=== PATIENT | female | born 1945 | race Caucasian/White ===

== ENCOUNTER 2017-10-19 07:45 | Day surgery (SDC) | payer OTHER ==
[2017-10-18 12:01] LABS: Absolute Lymphocytes (CBC) 2.6 K/uL (0.7-4.9); Absolute Monocytes 0.9 K/uL (0.1-1.3); Absolute Neutrophil 5.6 K/uL (1.8-8.0); Basophils % 0.4 % (0-1.3); Eosinophils % 3.9 % (0-4.4); Hematocrit 43.4 % (36.0-45.0); Lymphocytes % 27.1 % (15.3-44.8); MCH 30.7 pg (27.0-35.0); MCV 90.5 fL (80-100); Monocytes % 9.8 % (3.3-12.3); RBC Red Blood Cell Count 4.79 M/uL (3.86-4.86)
[2017-10-18 12:07] LABS: Protime INR 1.03
--- NOTE | 2017-10-18 12:17 | RAD REPORT ---
EXAM DESCRIPTION: RAD - Chest Pa And Lat (2 Views) - 10/18/2017 11:51 am CLINICAL HISTORY: Pre-procedure chest examination, kidney stone COMPARISON: July 2015 TECHNIQUE: PA and lateral views of the chest were obtained. FINDINGS: The lungs are fibrotic as a baseline. Interstitial pattern is similar to the comparison. T rachea is in mid line. Heart size is normal and central vasculature is within normal limits. No pl eural effusion or pneumothorax seen. No acute bony finding noted. No aortic abnormality. IMPRESSION: No acute cardiopulmonary process. Chronic interstitial pattern is present similar to July 2015.
[2017-10-18 12:22] LABS: Potassium 4.5 mEq/L (3.6-5.0)
[2017-10-18 12:23] LABS: Urine Appearance CLOUDY; Urine Bilirubin NEGATIVE (NEG); Urine Blood TRACE (NEG); Urine Color DK YELLOW; Urine Glucose NEGATIVE (NEG); Urine Protein TRACE (NEG); Urine Urobilinogen 0.2 mg/dL (0.2-1.0); Urine pH 5.5 (5.0-7.0)
[2017-10-18 12:25] LABS: Uric Acid 6.7 mg/dL (2.6-8.0)
[2017-10-18 12:31] LABS: Urine Microscopic Reflex ORDER UMIC
[2017-10-18 13:33] LABS: Urine Bacteria 20-50 /HPF (<20); Urine RBC <5 /HPF (NONE SEEN)
[2017-10-18 13:34] LABS: Urine Culture Reflex Order NOT NEEDED; Urine Mucus 1+ /HPF (NONE SEEN)
--- NOTE | 2017-10-18 13:53 | EKG ---
Test Date: 2017-10-18 Test Time: 11:34:42 Heading Matcher And Assembler: CASSI MEASUREMENT RESULTS: Intervals: Rate: 73 NV: 162 QRSD: 92 QT: 426 QTc: 469 [place]: P: 20 NV: 162 QRS: -13 T: 24 INTERPRETIVE STATEMENTS: Normal sinus rhythm Normal ECG No previous ECG available for comparison Electronically Signed On 10-18-17 13:52:16 CDT by Odell Hickman
[2017-10-18 13:58] LABS: Phosphorus 3.6 mg/dL (2.5-4.3)
[2017-10-19] MEDS ORDERED: Ringers Lactate 1,000 ML IV ONE (07:50)
[2017-10-19] MEDS ORDERED: LIDOCAINE 2% MPF 5 ML VIAL ONE (08:05)
[2017-10-19] MEDS ORDERED: MIDAZOLAM HCL 2 MG/2 ML INJ ONE (08:05)
[2017-10-19] MEDS ORDERED: FENTANYL CITR 100 MCG/2 ML ONE (08:05)
[2017-10-19] MEDS ORDERED: PROPOFOL 200 MG/20 ML VIAL IV ONE (08:05)
--- NOTE | 2017-10-19 08:22 | RAD REPORT ---
EXAM DESCRIPTION: RAD - Abdomen 1 View (KUB) - 10/19/2017 8:01 am CLINICAL HISTORY: Preop or pre-procedure examination COMPARISON: None. FINDINGS: Large dense stool volume in the colon obscures the right kidney and much of the left kidne y. Small left renal calculus overlying the hilum is suspected. Additional calculi could be present. T here are numerous phleboliths in the pelvis. Several are in a position that they may a represent dist al ureteral calculi. No obstruction, free air or pneumatosis. Bowel gas pattern is nonspecific other than large stool vol ume. Lower lumbar degenerative changes are present. No acute process suspected. IMPRESSION: Small renal calculus overlying the hilum. Overall renal calculi assessment is significan tly limited due to the amount of bowel content. Numerous phleboliths in the pelvis, 1 or more of which could be a ureteral calculus based on location .
[2017-10-19] MEDS: GENTAMICIN 80 MG/100 ML BAG 80 MG/100 ML BAG IV ONE ×2 (08:47→08:57)
[2017-10-19] MEDS ORDERED: EPHEDRINE SULF 50 MG/5 ML SYR ONE (09:08)
[2017-10-19] MEDS: MEPERIDINE HCL 25 MG/0.5 ML ONE ×2 (10:15→10:21)
[2017-10-19 11:08] VITALS: TEMP 97
[2017-10-19] MEDS ORDERED: HYDROCODONE/APAP 5/325 MG TAB ONE (11:35)
[2017-10-19 12:51] VITALS: BP 153/88; O2SAT 98
== END 2017-10-19 12:50 | disposition home or self-care (01) ==
LOC: OR 07:45
PROVIDERS: ATTEND Urology
PROC: 0TF3XZZ Fragmentation in Right Kidney Pelvis, External Approach (ICD-10-PCS; principal; 2017-10-19 09:00)
DX: N20.0 Calculus of kidney (principal); Q62.39 Other obstructive defects of renal pelvis and ureter; K21.9 Gastro-esophageal reflux disease without esophagitis; H40.9 Unspecified glaucoma; M06.9 Rheumatoid arthritis, unspecified; Z88.8 Allergy status to other drugs, medicaments and biological substances; Z90.49 Acquired absence of other specified parts of digestive tract
CPT/HCPCS: 36415; 50590; 71046; 74018; 80048; 81003; 81015; 84100; 84550; 85025; 85610; 85730; 87086; 87088; 93005; J1580; J2175; J2250; J3010

== ENCOUNTER 2017-10-19 21:24 | Inpatient (IN) | payer OTHER ==
[2017-10-19 22:28] LABS: Urine Blood 2+ (NEG); Urine Glucose NEGATIVE (NEG); Urine Protein 2+ (NEG)
[2017-10-19] MEDS ORDERED: NA CHLORIDE 0.9% 1,000 ML ONE (22:29)
[2017-10-19 22:54] LABS: Absolute Lymphocytes (CBC) 1.5 K/uL (0.7-4.9); Absolute Monocytes 1.2 K/uL (0.1-1.3); Absolute Neutrophil 10.5 K/uL (1.8-8.0); Basophils % 0.4 % (0-1.3); Eosinophils % 0.4 % (0-4.4); Hematocrit 39.2 % (36.0-45.0); Lymphocytes % 11.2 % (15.3-44.8); MCH 30.5 pg (27.0-35.0); MCV 89.4 fL (80-100); MPV 7.9 fL (7.6-11.3); Monocytes % 9.1 % (3.3-12.3); RBC Red Blood Cell Count 4.39 M/uL (3.86-4.86)
[2017-10-19 23:05] LABS: Urine Bacteria <20 /HPF (<20); Urine Culture Reflex Order NOT NEEDED; Urine RBC 20-50 /HPF (NONE SEEN)
[2017-10-19 23:13] LABS: Albumin 3.8 g/dL (3.2-5.5); Bilirubin Direct 0.1 mg/dL (0-0.2); Bilirubin Total 0.5 mg/dL (0.3-1.2); Potassium 3.7 mEq/L (3.6-5.0); Protein, Total 7.2 g/dL (6.0-8.3)
[2017-10-20] MEDS ORDERED: MORPHINE 2 MG/ML SYR IV PRN (00:35)
[2017-10-20] MEDS: NA CHLORIDE 0.9% 1,000 ML IV SCH ×3 (01:00→17:00)
--- NOTE | 2017-10-20 01:01 | ER ---
Nurse's Notes [facility] Name: Krupa Massey Age: 72 yrs Sex: Female : 1945 Arrival Date: 10/19/2017 Time: 21:27 Bed 7 Private MD: Diagnosis: Obstructive right uropathy. S/P Lithotripsy. UTI. Fever Presentation: 10/19 21:44 Presenting complaint: Patient states: Headache, fever, right lower back pain since this aj AM after lithotripsy. Transition of care: patient was not received from another setting of care. Onset of symptoms was October 19, 2017. Initial Sepsis Screen: Does the patient meet any 2 criteria? No. Patient's initial sepsis screen is negative. Does the patient have a suspected source of infection? No. Patient's initial sepsis screen is negative. Care prior to arrival: None. 21:44 Method Of Arrival: Ambulatory aj 21:44 Acuity: JOSUE 3 aj Triage Assessment: 21:47 General: Appears in no apparent distress. uncomfortable, Behavior is calm, cooperative, aj appropriate for age. Pain: Complains of pain in face and right low back Pain currently is 5 out of 10 on a pain scale. Neuro: Level of Consciousness is awake, alert, obeys commands, Oriented to person, place, time, situation, Appropriate for age Reports headache. Respiratory: Airway is patent Respiratory effort is even, unlabored, Respiratory pattern is regular, symmetrical. : Reports pain in right in lower back. Derm: Skin is intact, is healthy with good turgor, Skin is dry, Skin is normal, Skin temperature is hot. Historical: - Allergies: 21:47 temalol; aj 21:47 alfagan; aj - Home Meds: 21:47 Nexium Oral [Active]; meloxicam oral oral [Active]; aj - PMHx: 21:47 None; aj - PSHx: 21:47 Lithotripsy; Knee surgery; foot; Cholecystectomy; aj - Immunization history:: Adult Immunizations up to date. - Social history:: Smoking status: Patient/guardian denies using tobacco. Screenin:01 Abuse screen: Denies threats or abuse. Nutritional screening: No deficits noted. ea Tuberculosis screening: No symptoms or risk factors identified. Fall Risk None identified. Assessment: 21:56 General: Appears uncomfortable, Behavior is calm, cooperative, appropriate for age. ea Pain: Complains of pain in headache, right lower back and right lower quadrant Pain currently is 8 out of 10 on a pain scale. Quality of pain is described as aching, Pain began suddenly. Neuro: Level of Consciousness is awake, alert, obeys commands, Oriented to person, place, time, situation. Cardiovascular: Heart tones S1 S2 present Patient's skin is warm and dry. Respiratory: Airway is patent Respiratory effort is even, unlabored, Respiratory pattern is regular, symmetrical, Breath sounds are clear bilaterally. GI: Abdomen is non-distended, Bowel sounds present X 4 quads. Abd is soft X 4 quads Abdomen is tender to palpation in right lower quadrant. : Parent/caregiver report the patient having recent lithotripsy. EENT: No signs and/or symptoms were reported regarding the EENT system. Derm: Skin is pink, warm \T\ dry. 22:58 Reassessment: Patient and/or family updated on plan of care and expected duration. Pain ea level reassessed. Patient is alert, oriented x 3, equal unlabored respirations, skin warm/dry/pink. 23:50 Reassessment: Patient and/or family updated on plan of care and expected duration. Pain ea level reassessed. Patient is alert, oriented x 3, equal unlabored respirations, skin warm/dry/pink. 10/20 00:33 Reassessment: Patient and/or family updated on plan of care and expected duration. Pain ea level reassessed. Patient is alert, oriented x 3, equal unlabored respirations, skin warm/dry/pink. 01:42 Reassessment: Patient and/or family updated on plan of care and expected duration. Pain ea level reassessed. Patient is alert, oriented x 3, equal unlabored respirations, skin warm/dry/pink. 01:49 Reassessment: Report given to George CANTU on fourth floor. ea Vital Signs: 10/19 21:47 BP 169 / 84; Pulse 109; Resp 20; Temp 99.9; Pulse Ox 93% on R/A; Weight 88.45 kg; aj Height 5 ft. 6 in. (167.64 cm); Pain 5/10; 21:59 BP 140 / 80; Pulse 103; Resp 18; Pulse Ox 95% on R/A; ea 22:45 BP 135 / 75; Pulse 90; Resp 18; Pulse Ox 94% on R/A; aa1 10/20 00:33 BP 129 / 56; Pulse 90; Resp 18; Pulse Ox 99% on R/A; ea 01:39 BP 130 / 78; Pulse 89; Resp 18; Temp 98.7; Pulse Ox 96% on R/A; Pain 0/10; ea 10/19 21:47 Body Mass Index 31.47 (88.45 kg, 167.64 cm) ED Course: 10/19 21:27 Patient arrived in ED. am2 21:45 Triage completed. aj 21:47 Arm band placed on left wrist. Patient placed in an exam room, on a stretcher. aj 21:53 Prasanth Ibrahim MD is Attending Physician. pkl 21:56 Nadine Mercer, PEPE is Primary Nurse. ea 22:01 Patient has correct armband on for positive identification. Bed in low position. Call ea light in reach. Side rails up X2. 22:20 X-ray completed. Portable x-ray completed in exam room. Patient tolerated procedure kc2 well. 22:20 XRAY CXR (1 view) In Process Unspecified. EDMS 23:[address] via wheelchair. cw1 23:39 CT completed. Patient moved back from CT. cw1 23:45 CT Abd/Pelvis - W/Contrast In Process Unspecified. EDWV 10/20 00:59 Susan De Luna MD is Hospitalizing Provider. pkl 01:42 No provider procedures requiring assistance completed. Patient admitted, IV remains in ea place. Administered Medications: 10/19 22:41 Drug: NS 0.9% 1000 ml Route: IV; Rate: 125 ml/hr; Site: left antecubital; ea 10/20 02:04 Follow up: Response: No adverse reaction; IV Status: Completed infusion; IV Intake: ea 350ml Intake: 02:04 IV: 350ml; Total: 350ml. ea Outcome: 01:00 Decision to Hospitalize by Provider. pkl 01:41 Instructed on the need for admit. ea 02:02 Admitted to Med/surg accompanied by tech, room 407, with chart, Report called to George carranza RN 02:02 Condition: stable 02:03 Patient left the ED. ea Signatures: Dispatcher [employer] EDAdriane Batxer, RN RN aa1 Dana Fletcher RN RN aj Lam, Pin, MD MD pkl Woodley, Maria Elena cw1 Marcelina Rizvi2 Dana Alexis Elena, RN RN ea
--- NOTE | 2017-10-20 01:01 | EDPHYS ---
Physician Documentation [facility] Name: Krupa Massey Age: 72 yrs Sex: Female : 1945 Arrival Date: 10/19/2017 Time: 21:27 Bed 7 Private MD: ED Physician Prasanth Ibrahim HPI: 10/19 23:01 This 72 yrs old Female presents to ER via Ambulatory with complaints of pkl Fever/headache/back pain. 23:01 The patient reports fever, that was measured at 101.6 degrees Fahrenheit, with an pkl emergency department temperature of 99.9 degrees Fahrenheit. Onset: The symptoms/episode began/occurred today. Associated signs and symptoms: Pertinent positives: headache, nausea, Right flank and abdominal pain. Patient had lithotripsy earlier this morning for her right ureteral stone by Dr. Fox. Historical: - Allergies: 21:47 temalol; aj 21:47 alfagan; aj - Home Meds: 21:47 Nexium Oral [Active]; meloxicam oral oral [Active]; aj - PMHx: 21:47 None; aj - PSHx: 21:47 Lithotripsy; Knee surgery; foot; Cholecystectomy; aj - Immunization history:: Adult Immunizations up to date. - Social history:: Smoking status: Patient/guardian denies using tobacco. ROS: 23:01 Eyes: Negative for injury, pain, redness, and discharge, ENT: Negative for injury, pkl pain, and discharge, Neck: Negative for injury, pain, and swelling, Cardiovascular: Negative for chest pain, palpitations, and edema, Respiratory: Negative for shortness of breath, cough, wheezing, and pleuritic chest pain. 23:01 Abdomen/GI: Positive for abdominal pain, nausea, of the right upper quadrant and right lower quadrant. 23:01 Back: Positive for pain at rest. 23:01 : Negative for urinary symptoms. 23:01 MS/extremity: Negative for acute changes. 23:01 Skin: Negative for rash. 23:01 Neuro: Positive for headache. Exam: 23:01 Head/Face: Normocephalic, atraumatic. Eyes: Pupils equal round and reactive to light, pkl extra-ocular motions intact. Lids and lashes normal. Conjunctiva and sclera are non-icteric and not injected. Cornea within normal limits. Periorbital areas with no swelling, redness, or edema. ENT: Nares patent. No nasal discharge, no septal abnormalities noted. Tympanic membranes are normal and external auditory canals are clear. Oropharynx with no redness, swelling, or masses, exudates, or evidence of obstruction, uvula midline. Mucous membranes moist. Neck: Trachea midline, no thyromegaly or masses palpated, and no cervical lymphadenopathy. Supple, full range of motion without nuchal rigidity, or vertebral point tenderness. No Meningismus. Chest/axilla: Normal chest wall appearance and motion. Nontender with no deformity. No lesions are appreciated. Cardiovascular: Regular rate and rhythm with a normal S1 and S2. No gallops, murmurs, or rubs. Normal PMI, no JVD. No pulse deficits. Respiratory: Lungs have equal breath sounds bilaterally, clear to auscultation and percussion. No rales, rhonchi or wheezes noted. No increased work of breathing, no retractions or nasal flaring. 23:01 Abdomen/GI: Bowel sounds: normal, Palpation: soft, mild abdominal tenderness, in the right upper quadrant and right lower quadrant. 23:01 Back: pain, that is moderate, of the right flank. 23:01 : Exam negative for acute changes. 23:01 Musculoskeletal/extremity: Exam is negative for acute changes. 23:01 Skin: Exam negative for rash. 23:01 Neuro: Orientation: is normal, Mentation: is normal, Cranial nerves: grossly normal, Motor: is normal. Vital Signs: 21:47 BP 169 / 84; Pulse 109; Resp 20; Temp 99.9; Pulse Ox 93% on R/A; Weight 88.45 kg; aj Height 5 ft. 6 in. (167.64 cm); Pain 5/10; 21:59 BP 140 / 80; Pulse 103; Resp 18; Pulse Ox 95% on R/A; ea 22:45 BP 135 / 75; Pulse 90; Resp 18; Pulse Ox 94% on R/A; aa1 10/20 00:33 BP 129 / 56; Pulse 90; Resp 18; Pulse Ox 99% on R/A; ea 01:39 BP 130 / 78; Pulse 89; Resp 18; Temp 98.7; Pulse Ox 96% on R/A; Pain 0/10; ea 10/19 21:47 Body Mass Index 31.47 (88.45 kg, 167.64 cm) aj MDM: 10/19 21:53 Patient medically screened. pkl 10/20 00:58 Data reviewed: vital signs, nurses notes, lab test result(s), radiologic studies, CT pkl scan. 10/19 22:06 Order name: CBC with Diff; Complete Time: 23:09 pkl 10/19 22:06 Order name: Chem 7; Complete Time: 23:20 pkl 10/19 22:06 Order name: Strep; Complete Time: 23:09 pkl 10/19 22:06 Order name: LFT's; Complete Time: 23:20 pkl 10/19 22:06 Order name: Amylase, Serum; Complete Time: 23:20 pkl 10/19 22:06 Order name: Lipase; Complete Time: 23:20 pkl 10/19 22:06 Order name: Blood Culture Adult (2) pk 10/19 22:21 Order name: Urine Dipstick--Ancillary (enter results); Complete Time: 22:41 [facility] 10/19 22:21 Order name: Urine Culture [facility] 10/19 22:21 Order name: Urine Microscopic Only; Complete Time: 23:09 cb2 10/19 23:07 Order name: Throat Culture EDMO 10/20 00:42 Order name: Comprehensive Metabolic Panel EDMO 10/20 00:42 Order name: CBC with Automated Diff EDMO 10/20 00:42 Order name: CBC with Automated Diff EDMO 10/19 22:06 Order name: XRAY CXR (1 view) pk 10/19 22:21 Order name: Urine Dipstick-Ancillary (obtain specimen); Complete Time: 23:12 cb2 10/19 23:21 Order name: CT Abd/Pelvis - W/Contrast pk 10/20 00:42 Order name: CONS Pharmacy Consult EDMO 10/20 00:42 Order name: CONS Physician Consult EDMO 10/20 00:42 Order name: NPO EDMO Administered Medications: 10/19 22:41 Drug: NS 0.9% 1000 ml Route: IV; Rate: 125 ml/hr; Site: left antecubital; ea 10/20 02:04 Follow up: Response: No adverse reaction; IV Status: Completed infusion; IV Intake: ea 350ml Disposition: 10/20/17 01:00 Hospitalization ordered by Susan De Luna for Inpatient Admission. Preliminary diagnosis is Obstructive right uropathy. S/P Lithotripsy. UTI. Fever. - Bed requested for Telemetry/MedSurg (Inpatient). - Status is Inpatient Admission. ea - Condition is Stable. - Problem is new. - Symptoms are unchanged. UTI on Admission? Yes Signatures: Dispatcher [employer] Dana Lacey, Prasanth Bowman RN, MD MD pkl Garcia, Cindy, RN RN cg Bulan, Christian cb2 Antunez, Elena, RN RN ea
[2017-10-20 02:39] VITALS: BMI 30.4
[2017-10-20 04:18] LABS: Absolute Lymphocytes (CBC) 2.8 K/uL (0.7-4.9); Absolute Monocytes 1.5 K/uL (0.1-1.3); Absolute Neutrophil 7.4 K/uL (1.8-8.0); Basophils % 0.6 % (0-1.3); Eosinophils % 1.1 % (0-4.4); Hematocrit 37.3 % (36.0-45.0); Lymphocytes % 23.4 % (15.3-44.8); MCH 30.1 pg (27.0-35.0); MCV 90.1 fL (80-100); Monocytes % 12.3 % (3.3-12.3); RBC Red Blood Cell Count 4.14 M/uL (3.86-4.86)
[2017-10-20 04:29] LABS: Albumin 3.4 g/dL (3.2-5.5); Bilirubin Total 0.5 mg/dL (0.3-1.2); Potassium 3.5 mEq/L (3.6-5.0); Protein, Total 6.4 g/dL (6.0-8.3)
[2017-10-20] MEDS: Morphine 2 MG/2 ML SYR IV PRN ×3 (05:46→13:13)
--- NOTE | 2017-10-20 06:12 | RAD REPORT ---
EXAM DESCRIPTION: RAD - Chest Single View - 10/19/2017 10:20 pm CLINICAL HISTORY: Fever COMPARISON: October 18 TECHNIQUE: AP portable chest image was obtained 2210 hours . FINDINGS: Chronic interstitial lung disease is evident. No new consolidation or mass. No new failure or volume overload findings seen. Trachea remains midline. Heart and vasculature are normal. No anitha urable pleural effusion and no pneumothorax. No gross bony abnormality seen. No acute aortic findings suspected. IMPRESSION: No new or progressive cardiopulmonary finding. Chronic interstitial lung disease is noted similar to the prior day study.
--- NOTE | 2017-10-20 06:49 | RAD REPORT ---
EXAM DESCRIPTION: CT - Abdomen Pelvis W Contrast - 10/20/2017 6:08 am CLINICAL HISTORY: Fever, right lower quadrant abdominal pain, lithotripsy performed earlier in the d ay A preliminary written report was provided at the time of the study, and the report was reviewed prio r to final dictation. COMPARISON: CT chest September 2015 TECHNIQUE: Biphasic, helical CT imaging of the abdomen and pelvis was performed following 100 ml non -ionic IV contrast. No oral contrast administered. All CT scans are performed using dose optimization technique as appropriate and may include automated exposure control or mA/KV adjustment according to patient size. FINDINGS: Extensive but chronic interstitial lung disease is present at each base. No focal consolid ation, mass, pneumothorax or pleural effusion. No pericardial effusion. The liver, spleen, and pancreas show no suspicious findings. Cholecystectomy clips are present. No bi liary tree dilatation. Left renal function is normal. posterosuperior 3.9 centimeter cyst is present. A 9.5 cm cyst is prese nt anteriorly. Right kidney shows moderate hydronephrosis of the pelvis, calices and proximal ureter secondary to a 7 mm calculus. From a KUB projection the stone is at the level of the L3-4 disc. More distally the ureter is decompressed. There may be a very faint or small stone fragment in the ureter at the pelvic inlet. There is some stranding along the course of the ureter between the pelvic inlet in the proximal obstructing stone. No pyelonephritis suspected in the right renal parenchyma. Numerou s phleboliths are seen. A 1- 2 millimeter bladder calculus is evident. Lobulated uterus with a 3 centimeter fibroid along the left lateral margin. No ovarian process identi fied. No dilated bowel loops or bowel wall thickening. No appendicitis findings. No free air, free fluid, p neumatosis or other site of inflammatory stranding. No hernia, mass or bulky lymphadenopathy. No adr enal abnormality. No suspicious bony findings. IMPRESSION: Moderate right-sided hydronephrosis secondary to a 7 mm calculus in the proximal right u reter. On a KUB projection the stone is at the level of the L3-4 disc. Suspected punctate stone fragment in the right ureter at the pelvic inlet level with 1-2 millimeter s tone fragment in the bladder. No pyelonephritis or acute renal parenchymal process. Right renal function is delayed. Additional nonacute findings detailed in the body of the report.
--- NOTE | 2017-10-20 06:55 | P.HP ---
Certification for Inpatient Patient admitted to: Observation With expected LOS: <2 Midnights Patient will require the following post-hospital care: None Practitioner: I am a practitioner with admitting privileges, knowledge of patient current condition, hospital course, and medical plan of care. Services: Services provided to patient in accordance with Admission requirements found in Title 42 Section 412.3 of the Code of Federal Regulations Patient History Date of Service: 10/20/17 Reason for admission: Nephrolithiasis History of Present Illness: Patient 72-year-old female came into the hospital with flank pain. Patient had a lithotripsy performed earlier today. However patient's pain continued after the procedure. She came into the emergency room and CT scan revealed that her stone was still there. Emergency room spoke with Dr. Fox who wanted to admit the patient for further treatment. Patient will be admitted to the hospital with IV hydration and IV antibiotics. NPO after midnight for possible intervention. Allergies brimonidine [From Alphagan P] Allergy (Verified 10/20/17 02:28) Itching timolol Allergy (Verified 10/20/17 02:28) Rash Home Medications: Esomeprazole Mag Trihydrate [Nexium] 40 mg PO DAILY 10/18/17 Latanoprost Ophth [Xalatan 0.005%*] 1 drop EACH EYE BEDTIME 10/18/17 Meloxicam 15 mg PO DAILY 10/18/17 Hydrocodone 10/APAP 325 [[place] 10/325] 1 tab PO Q8H PRN 10/20/17 Tamsulosin HCl [Tamsulosin HCl] 1 tab PO DAILY 10/20/17 - Past Medical/Surgical History Has patient received pneumonia vaccine in the past: No Diabetic: No -: glaucoma -: knee surgery -: lithotripsy -: cholecystectomy - Family History Father Family History: Reviewed- Non-Contributory - Social History Smoking Status: Never smoker Alcohol use: No CD- Drugs: Yes Caffeine use: Yes Place of Residence: Home Review of Systems 10-point ROS is otherwise unremarkable Physical Examination - Vital Signs Temperature: 97.8 F Blood Pressure: 138/64 Pulse: 82 Respirations: 18 Pulse Ox (%): 97 - Physical Exam General: Alert, In no apparent distress, Oriented x3 HEENT: Atraumatic, PERRLA, Mucous membr. moist/pink, EOMI, Sclerae nonicteric Neck: Supple, 2+ carotid pulse no bruit, No LAD, Without JVD or thyroid abnormality Respiratory: Clear to auscultation bilaterally, Normal air movement Cardiovascular: Regular rate/rhythm, Normal S1 S2, No murmurs Gastrointestinal: Normal bowel sounds, Soft and benign, Non-distended, Tenderness (Flank) Musculoskeletal: No clubbing, No swelling, No tenderness Integumentary: No rashes Neurological: Normal gait, Normal speech, Normal strength at 5/5 x4 extr, Normal tone, Sensation intact, Cranial nerves 3-12 intact, Normal affect Lymphatics: No axilla or inguinal lymphadenopathy - Studies Laboratory Data (last 24 hrs) 10/19/17 22:25: Sodium 134 L, Potassium 3.7, BUN 17, Creatinine 1.03 H, Glucose 182 H, Total Bilirubin 0.5, AST 30, ALT 21, Alkaline Phosphatase 78, Amylase 43 , Lipase 23 10/19/17 22:25: WBC 13.3 H D, Hgb 13.4, Hct 39.2, Plt Count 230 Microbiology Data (last 24 hrs): 10/19/17 22:29 Throat Group A Streptococcus Rapid Screen - Final Assessment & Plan - Problems (Diagnosis) (1) Obstructive uropathy Current Visit: Yes Status: Acute - Plan Plan: 1. Continue with IV hydration 2. Continue with IV antibiotics 3. Continue with pain control 4. NPO 5. Urology consultation; 6. GI and DVT prophylaxis - Advance Directives Does patient have a Living Will: Yes Does patient have a Durable POA for Healthcare: Yes - Code Status/Comfort Care Code Status Assessed: Yes Code Status: Full Code Critical Care: No Time Spent Managing PTS Care (In Minutes): 50
[2017-10-20] MEDS ORDERED: PNEUMOCOCCAL VACCINE 0.5 ML IMVAC ONE (08:00)
[2017-10-20] MEDS ORDERED: HYDROCODONE/APAP 10/325 TAB PO PRN (08:48)
[2017-10-20] MEDS: TAMSULOSIN 0.4 MG SR CAP PO SCH (08:56)
[2017-10-20] MEDS ORDERED: HOME MED 1 EA UNK (Esomeprazole Mag Trihydrate [Nexium] 40 MG) PO SCH (09:00)
[2017-10-20] MEDS: ONDANSETRON 4 MG/2 ML VIAL IV PRN (09:09)
[2017-10-20] MEDS ORDERED: CEFTRIAXONE/SWI 1gm 1 GM/10 ML SYR IV SCH (11:00)
--- NOTE | 2017-10-20 13:11 | CON ---
History Of Present Illness: A 72-year-old female had her right ESWL done yesterday, went home, devel oped severe pain and temperature 101.5. She was brought to the emergency room for re-scan, IV hydrat ion, IV antibiotics on admission. She is n.p.o. for possible cysto, right stent placement today. CT scan showed a 7 mm stone at the level of L3 and L4. She will require pain medication overnight arou nd the clock. Allergies: BRIMONIDINE CAUSED ITCHING, TIMOLOL CAUSED RASH. Home Medications: Omeprazole, Xalatan, meloxicam, hydrocodone, tamsulosin. Past Medical History And Surgical History: Glaucoma, knee surgery, lithotripsy, cholecystectomy. Family History: Reviewed, noncontributory. Social History: No smoking. No alcohol. History of drug use, caffeine use. Resides at home. Review of Systems: A 10-point review of systems was unremarkable. Physical Examination: Vital Signs: She was afebrile and stable. General: Alert, oriented. HEENT: Atraumatic, normocephalic. Neck: Supple. Respiratory: Clear to auscultation. Cardiac: S1, S2. Abdomen: Soft, nontender. Has some right flank tenderness. Laboratory Data: Sodium 134, potassium 3.7, creatinine 1.0, glucose 182. White count was slightly e levated to 13,000, H and H 13 and 39, platelet count 230. Assessment: Right ureteral stone, renal colic, status post ESWL. There is some small chip seen in t he bladder and distal ureter from the ESWL, but the stone is pretty much together intact, 7 mm to the right of L3-L4. Plan is for cystoscopy and stent placement that will improve her pain and get her h ome. PB/MODL Voice ID: [id number] Report ID: [id number]
[2017-10-20] MEDS ORDERED: MIDAZOLAM HCL 2 MG/2 ML INJ ONE (13:42)
[2017-10-20] MEDS ORDERED: PROPOFOL 200 MG/20 ML VIAL IV ONE (13:42)
[2017-10-20] MEDS ORDERED: FENTANYL CITR 100 MCG/2 ML ONE (13:43)
[2017-10-20] MEDS ORDERED: LIDOCAINE 2% MPF 5 ML VIAL ONE (13:43)
[2017-10-20] MEDS ORDERED: GENTAMICIN 80 MG/100 ML BAG 80 MG/100 ML BAG IV ONE (14:09)
[2017-10-20] MEDS ORDERED: NA CHLORIDE 0.9% 1,000 ML ONE (14:23)
[2017-10-20] MEDS ORDERED: KETOROLAC 30 MG/ML INJ ONE (14:37)
--- NOTE | 2017-10-20 15:33 | RAD REPORT ---
EXAM DESCRIPTION: RAD - Urethrocystogrphy Retrograde - 10/20/2017 2:48 pm CLINICAL HISTORY: Abdominal pain. FINDINGS: Two fluoroscopic spot images are submitted for retrograde pyelogram. The examination was p erformed by Dr. Fox. The most recent film demonstrates cannulation of right ureter with the adminis tration of contrast. A filling defect is suspected within the proximal right ureter probably represen ting a calculus Please refer to Dr. Fox's report for additional findings.
[2017-10-20 15:34] LABS: Urine Bacteria <20 /HPF (<20); Urine Culture Reflex Order NOT NEEDED; Urine Mucus NS /HPF (NONE SEEN); Urine RBC >50 /HPF (NONE SEEN)
[2017-10-20] MEDS: ACETAMINOPHEN 500 MG TAB PO PRN ×2 (18:19→21:41)
[2017-10-20 22:08] LABS: Absolute Lymphocytes (CBC) 0.6 K/uL (0.7-4.9); Absolute Monocytes 1.1 K/uL (0.1-1.3); Basophils % 0.1 % (0-1.3); Eosinophils % 0.1 % (0-4.4); Hematocrit 37.2 % (36.0-45.0); Lymphocytes % 3.1 % (15.3-44.8); MCH 30.1 pg (27.0-35.0); MCV 89.3 fL (80-100); MPV 7.9 fL (7.6-11.3); Monocytes % 5.7 % (3.3-12.3); RBC Red Blood Cell Count 4.17 M/uL (3.86-4.86)
--- NOTE | 2017-10-20 22:20 | RAD REPORT ---
EXAM DESCRIPTION: RAD - Chest Single View - 10/20/2017 10:15 pm CLINICAL HISTORY: Shortness of breath, tachycardia COMPARISON: 10/19/2017, 10/18/2017 FINDINGS: Portable technique limits examination quality. Mild bilateral pulmonary opacities are noted likely representing pneumonia or pulmonary edema. Findin gs appear mildly progressive since the most recent comparative study. The heart is mildly to moderate ly enlarged. No displaced fractures.
[2017-10-20 23:18] LABS: Blood Morphology Comment NOT SEEN (NOT SEEN); Platelet Estimate ADEQ
[2017-10-21] MEDS: Levofloxacin500mg IV 500 MG/100 ML BAG IV SCH (00:34)
[2017-10-21] MEDS: NA CHLORIDE 0.9% 1,000 ML IV SCH ×4 (00:35→22:00)
[2017-10-21 04:14] LABS: Absolute Lymphocytes (CBC) 1.6 K/uL (0.7-4.9); Absolute Monocytes 1.5 K/uL (0.1-1.3); Absolute Neutrophil 18.1 K/uL (1.8-8.0); Basophils % 0.3 % (0-1.3); Eosinophils % 0.1 % (0-4.4); Hematocrit 35.8 % (36.0-45.0); Lymphocytes % 7.3 % (15.3-44.8); MCH 29.9 pg (27.0-35.0); MCV 91.7 fL (80-100); MPV 8.2 fL (7.6-11.3); Monocytes % 7.2 % (3.3-12.3); RBC Red Blood Cell Count 3.91 M/uL (3.86-4.86)
[2017-10-21 04:28] LABS: Protime INR 1.17
[2017-10-21 04:33] LABS: Bilirubin Total 0.6 mg/dL (0.3-1.2); Magnesium 1.8 mg/dL (1.8-2.5); Phosphorus 3.4 mg/dL (2.5-4.3); Potassium 4.1 mEq/L (3.6-5.0); Protein, Total 6.4 g/dL (6.0-8.3)
[2017-10-21 05:01] LABS: Blood Morphology Comment NOT SEEN (NOT SEEN); Platelet Estimate ADEQ
[2017-10-21] MEDS: CEFTRIAXONE/SWI 1gm 1 GM/10 ML SYR IV SCH ×2 (06:12→10:19)
[2017-10-21] MEDS: PANTOPRAZOLE 40MG TABLET PO SCH (06:12)
[2017-10-21] MEDS: ONDANSETRON 4 MG/2 ML VIAL IV PRN (09:46)
[2017-10-21] MEDS: TAMSULOSIN 0.4 MG SR CAP PO SCH (10:18)
--- NOTE | 2017-10-21 10:26 | RAD REPORT ---
EXAM DESCRIPTION: CT - Stone Protocol - 10/21/2017 10:05 am CLINICAL HISTORY: Abdominal pain. Placement of a right ureteral stent. COMPARISON: October 19, 2017 TECHNIQUE: Computed axial tomography of the abdomen pelvis was obtained without oral or IV contrast. Lack of IV and oral contrast limits evaluation of solid organs, bowel, and vessels. Coronal reformat edi images were obtained and reviewed. All CT scans are performed using dose optimization technique as appropriate and may include automated exposure control or mA/KV adjustment according to patient size. FINDINGS: A right ureteral calculus has been placed since the prior examination good position. The h ydronephrosis has resolved. A couple of small right renal calculi are noted. The proximal right urete ral calculus migrated into a right renal calyx. Left renal cysts are unchanged. The liver, spleen, pancreas and adrenals appear grossly normal There is no evidence of diverticulitis. The appendix appears normal A 34 millimeter mass abuts the left aspect of the uterus. It contains calcification. A small umbilical hernia contains fat. Spondylosis involves lumbar spine resulting in spinal stenosis Alveolar opacities have developed within the right lower lobe. A small hiatal hernia is present IMPRESSION: Placement of a right ureteral stent with resolution of the hydronephrosis 34 millimeter mass abutting the left aspect of the uterus most likely represents a subserosal fibroid . An ovarian mass is considered less likely. A follow-up ultrasound in 3 months is recommended to ass ess stability. Alveolar opacities within the right lower lobe likely represent pneumonia
--- NOTE | 2017-10-21 13:00 | P.PN ---
Subjective Date of Service: 10/21/17 Chief Complaint: Nephrolithiasis Subjective: No new changes, Tolerating diet (Still complains of having some nausea), Improving Review of Systems General: As per HPI Physical Examination - Vital Signs Temperature: 98.6 F Blood Pressure: 138/88 Pulse: 72 Respirations: 18 Pulse Ox (%): 95 - Physical Exam General: Alert, In no apparent distress, Oriented x3 HEENT: Atraumatic, PERRLA, EOMI Neck: Supple, JVD not distended Respiratory: Clear to auscultation bilaterally, Normal air movement Cardiovascular: Regular rate/rhythm, Normal S1 S2 Gastrointestinal: Normal bowel sounds, No tenderness Musculoskeletal: No tenderness Integumentary: No rashes Neurological: Normal speech, Normal tone, Normal affect Lymphatics: No axilla or inguinal lymphadenopathy - Studies Medications List Reviewed: Yes Assessment & Plan - Problems (Diagnosis) (1) SVT (supraventricular tachycardia) Current Visit: Yes Status: Acute Plan: 6 sec of SVT overnight. Resolved now -ECHO Pending. (2) Obstructive uropathy Onset Date: 10/20/17 Current Visit: Yes Status: Acute Plan: S/p Cystocopy with stent placement on the right side -Increased Nausea. -Repeat CT stone protocol negative for acute abnormality -IV fluids and IV abx. -Repeat Lab work in AM Discharge Plan: Home Plan to discharge in: 24 Hours - Code Status/Comfort Care Code Status Assessed: Yes Critical Care: No
[2017-10-21] MEDS: DOCUSATE NA 100 MG CAP PO SCH ×2 (13:58→22:26)
--- NOTE | 2017-10-21 16:48 | ECHO ---
HEIGHT: 5 ft 6 in WEIGHT: 188 lb 9.6 oz DATE OF STUDY: 10/21/[address]: Susan De Luna MD 2-DIMENSIONAL: YES M.MODE: YES DOPPLER: YES COLOR FLOW: YES TDS: PORTABLE: DEFINITY: BUBBLE STUDY: DIAGNOSIS: RUN OF SUPRAVENTRICULAR TACHYCARDIA - HEART RATE 180 CARDIAC HISTORY: CATHERIZATION: NO SURGERY: NO PROSTHETIC VALVE: NO PACEMAKER: NO MEASUREMENTS (cm) DIASTOLIC (NORMALS) SYSTOLIC (NORMALS) IVSd 0.9 (0.6-1.2) LA Diam 3.5 (1.9-4.0) LVEF 53% LVIDd 5.0 (3.5-5.7) LVIDs 3.6 (2.0-3.5) %FS 27% LVPWd 0.9 (0.6-1.2) Ao Diam 2.8 (2.0-3.7) 2 DIMENSIONAL ASSESSMENT: RIGHT ATRIUM: NORMAL LEFT ATRIUM: NORMAL RIGHT VENTRICLE: NORMAL LEFT VENTRICLE: NORMAL TRICUSPID VALVE: NORMAL MITRAL VALVE: NORMAL PULMONIC VALVE: NORMAL AORTIC VALVE: NORMAL PERICARDIAL EFFUSION: NONE AORTIC ROOT: NORMAL LEFT VENTRICULAR WALL MOTION: DOPPLER/COLOR FLOW: NORMAL COMMENTS: NORMAL 2-DIMENSIONAL ECHOCARDIOGRAM WITH DOPPLER. NO WALL MOTION ABNORMALITY. NO EFFUSION. TECHNOLOGIST: JACQUES MENDES
--- NOTE | 2017-10-21 18:03 | PN ---
Subjective: The patient had a white count this morning of 21.3 from 18.8. She had a recent cystosco py and stent placement yesterday. CT scan today revealed stone has been pushed back into the right l ower pole of the kidney, but chest x-ray does show signs of possible bilateral pneumonia. This may e xplain elevated white count. Her urine cultures have grown nothing significant so far. The plan vandana l be to try to obtain the cultures that could be helpful and continue her on antibiotic. She is now on Levaquin. Most likely, she is going to go home on that medication and we will do a KUB in a week or 2 to verify where the stone is and then hopefully remove the stent in this office, we shall have enrique roe attached distally. PAMELA/SYLVIA Voice ID: [id number] Report ID: [id number]
[2017-10-21] MEDS: ACETAMINOPHEN 500 MG TAB PO PRN (18:19)
[2017-10-22] MEDS: Levofloxacin500mg IV 500 MG/100 ML BAG IV SCH (01:57)
[2017-10-22] MEDS: ACETAMINOPHEN 500 MG TAB PO PRN ×2 (04:12→09:53)
[2017-10-22] MEDS: PANTOPRAZOLE 40MG TABLET PO SCH (06:48)
[2017-10-22 09:40] VITALS: TEMP 98.3
[2017-10-22] MEDS: DOCUSATE NA 100 MG CAP PO SCH (09:52)
[2017-10-22] MEDS: TAMSULOSIN 0.4 MG SR CAP PO SCH (09:53)
[2017-10-22 12:23] VITALS: BP 158/61
--- NOTE | 2017-10-22 14:20 | P.DS ---
Admission Date: 10/21/17 Discharge Date: 10/22/17 Disposition: ROUTINE DISCHARGE Discharge Condition: GOOD Reason for Admission: Nephrolithiasis Consultations: Urology Procedures: Cystoscopy with Stent Placement on the right - Problems (1) SVT (supraventricular tachycardia) Status: Acute (2) Obstructive uropathy Onset Date: 10/20/17 Status: Acute Brief History of Present Illness: Patient 72-year-old female came into the hospital with flank pain. Patient had a lithotripsy performed earlier today. However patient's pain continued after the procedure. She came into the emergency room and CT scan revealed that her stone was still there. Emergency room spoke with Dr. Fox who wanted to admit the patient for further treatment. Patient will be admitted to the hospital with IV hydration and IV antibiotics. NPO after midnight for possible intervention. Hospital Course: Overall during the hospital stay patient remained stable Patient initially was admitted to the hospital for obstructive uropathy. Patient recently had a lithotripsy done even after which she was continued to have pain and was found to have nephrolithiasis on the left side. Urology was consulted and patient was scheduled for a cystoscopy with stent placement. Patient did have a procedure done here in the hospital and tolerated well with no complications noted. Overnight the patient did well however was complaining of having some pain and had tachycardia. Echocardiogram was ordered which was in normal with a normal ejection fraction. Patient was continued on IV antibiotics and IV fluids here in the hospital. On day 3 of hospitalization patient had resolution of her symptoms and felt much better after the stent placement. At that time patient was discharged home under stable condition was asked to continue taking her ciprofloxacin along with Flomax. Patient will be following up with urology in about 1 week for stent removal. Vital Signs/Physical Exam: Temp Pulse Resp BP Pulse Ox 98.3 F 92 H 18 158/61 H 95 10/22/17 12:00 10/22/17 12:00 10/22/17 12:00 10/22/17 12:00 10/22/17 12:00 General: Alert, In no apparent distress, Oriented x3 HEENT: Atraumatic, PERRLA, EOMI Neck: Supple, JVD not distended Respiratory: Clear to auscultation bilaterally, Normal air movement Cardiovascular: Regular rate/rhythm, Normal S1 S2 Gastrointestinal: Normal bowel sounds, No tenderness Musculoskeletal: No tenderness Integumentary: No rashes Neurological: Normal speech, Normal tone, Normal affect Lymphatics: No axilla or inguinal lymphadenopathy Laboratory Data at Discharge: WBC 21.3 K/uL (4.3-10.9) H* 10/21/17 03:48 Hgb 11.7 g/dL (12.0-15.0) L 10/21/17 03:48 Hct 35.8 % (36.0-45.0) L 10/21/17 03:48 Plt Count 205 K/uL (152-406) 10/21/17 03:48 PT 13.8 SECONDS (9.5-12.5) H 10/21/17 03:48 INR 1.17 10/21/17 03:48 APTT 28.2 SECONDS (24.3-36.9) 10/21/17 03:48 Sodium 137 mEq/L (135-145) 10/21/17 03:48 Potassium 4.1 mEq/L (3.6-5.0) 10/21/17 03:48 BUN 16 mg/dL (6-20) 10/21/17 03:48 Creatinine 1.00 mg/dL (0.44-1.00) 10/21/17 03:48 Glucose 134 mg/dL (65-120) H 10/21/17 03:48 Phosphorus 3.4 mg/dL (2.5-4.3) 10/21/17 03:48 Magnesium 1.8 mg/dL (1.8-2.5) 10/21/17 03:48 Total Bilirubin 0.6 mg/dL (0.3-1.2) 10/21/17 03:48 AST 32 IU/L (10-42) 10/21/17 03:48 ALT 17 IU/L (10-60) 10/21/17 03:48 Alkaline Phosphatase 64 IU/L (42-121) 10/21/17 03:48 B-Natriuretic Peptide 238 pg/ml (<=100) H 10/21/17 03:48 Amylase 43 U/L (28-100) 10/19/17 22:25 Lipase 23 U/L (22-51) 10/19/17 22:25 Home Medications: Esomeprazole Mag Trihydrate [Nexium] 40 mg PO DAILY 10/18/17 Latanoprost Ophth [Xalatan 0.005%*] 1 drop EACH EYE BEDTIME 10/18/17 Meloxicam 15 mg PO DAILY 10/18/17 Hydrocodone 10/APAP 325 [[place] 10/325*] 1 tab PO Q8H PRN 10/20/17 Tamsulosin HCl 1 tab PO DAILY 10/20/17 Ciprofloxacin/Ciprofloxa HCl [Cipro 500 MG Xr Tablet] 500 mg PO BID #20 tbmp.24hr 10/22/17 Docusate [Colace Cap*] 100 mg PO BID #60 cap 10/22/17 Oxybutynin Chloride [Oxybutynin Chloride ER] 10 mg PO DAILY 7 Days #7 tab.er.24 10/22/17 Tramadol HCl [Ultram] 50 mg PO Q6H PRN #28 tablet 10/22/17 New Medications: Ciprofloxacin/Ciprofloxa HCl [Cipro 500 MG Xr Tablet] 500 mg PO BID #20 tbmp.24hr Docusate [Colace Cap*] 100 mg PO BID #60 cap Oxybutynin Chloride [Oxybutynin Chloride ER] 10 mg PO DAILY 7 Days #7 tab.er.24 Tramadol HCl [Ultram] 50 mg PO Q6H PRN #28 tablet PRN Reason: Pain Diet: Regular Activity: Ad howard Followup: Guillermo Fox MD [ACTIVE - CAN ADMIT] - 1 Week
[2017-10-22 16:06] VITALS: O2SAT 95
== END 2017-10-22 12:25 | disposition home or self-care (01) | DRG 693 ==
LOC: ER 21:24 → ERHOLD 10-20 01:00 → 4TH 10-20 01:12 → OBSVTOIN 10-21 14:44
PROVIDERS: ADMIT Hospitalist; ATTEND Family Medicine
PROC: 0T768DZ Dilation of Right Ureter with Intraluminal Device, Via Natural or Artificial Opening Endoscopic (ICD-10-PCS; principal; 2017-10-20 14:30)
DX: N13.2 Hydronephrosis with renal and ureteral calculous obstruction (principal); J18.9 Pneumonia, unspecified organism; I47.1 Supraventricular tachycardia; H40.9 Unspecified glaucoma; Z90.49 Acquired absence of other specified parts of digestive tract; Z98.890 Other specified postprocedural states
CPT/HCPCS: 36415; 50590; 51610; 71045; 71046; 74018; 74176; 74177; 74450; 76377; 80048; 80053; 80076; 81003; 81015; 82150; 82533; 83605; 83690; 83735; 83880; 84100; 84550; 85025; 85610; 85730; 87040; 87070; 87081; 87086; 87088; 93005; 93306; 96360; 96361; 99285; G0378; J0696; J1580; J2175; J2250; J2270; J2405; J3010; J7030; Q9967

== ENCOUNTER 2017-10-25 11:37 | Observation (INO) | payer OTHER ==
[2017-10-25 12:29] LABS: Absolute Monocytes 1.2 K/uL (0.1-1.3); Absolute Neutrophil 8.6 K/uL (1.8-8.0); Basophils % 0.5 % (0-1.3); Eosinophils % 2.8 % (0-4.4); Hematocrit 38.5 % (36.0-45.0); Lymphocytes % 16.3 % (15.3-44.8); MCH 29.9 pg (27.0-35.0); MCV 88.6 fL (80-100); MPV 7.7 fL (7.6-11.3); Monocytes % 9.6 % (3.3-12.3); RBC Red Blood Cell Count 4.34 M/uL (3.86-4.86)
[2017-10-25 12:50] LABS: Potassium 3.1 mEq/L (3.6-5.0)
--- NOTE | 2017-10-25 12:50 | RAD REPORT ---
EXAM DESCRIPTION: CT - Chest For Pe Angio - 10/25/2017 12:35 pm CLINICAL HISTORY: Cough, dyspnea COMPARISON: AP chest October 20, 2017, high-resolution CT chest September 2015 TECHNIQUE: Dynamically enhanced 3 mm thick images of the chest were obtained during administration o f approximately 150mL Isovue 370 IV contrast. Coronal and oblique reconstruction images were generate d and reviewed. Exam utilizes a protocol to evaluate the pulmonary arterial tree. All CT scans are performed using dose optimization technique as appropriate and may include automated exposure control or mA/KV adjustment according to patient size. FINDINGS: No pulmonary emboli are identified. The aorta as imaged shows no acute or suspicious finding. No pericardial thickening or effusion. Alveolar opacification is present throughout much of the right upper lobe and to a lesser degree in t he right lower lobe. Minimal alveolar opacities present in the midportion of the left upper lobe and superior segment left lower lobe. Patient has prominent interstitial thickening throughout the lung f ields. The 2016 high-resolution CT chest showed interstitial lung disease. Minimal atelectasis change s are present. No measurable pleural fluid present and no pneumothorax. Small hiatal hernia is present similar to prior imaging. No mediastinal or hilar suspicious masses. No chest wall masses or abnormal axillary lymphadenopathy. IMPRESSION: No pulmonary emboli identified. Airspace opacities are present throughout the lung colón most notable in the right upper lobe. Bilat eral pneumonia can have this presentation given the history of fever. Noninfectious interstitial and alveolar edema should be considered as well. Interstitial thickening is seen throughout the chest increased over what was seen September 2015. This is favored to be interstitial edema or infiltrate superimposed on chronic interstitial disease rather t villagomez only progressive fibrosis.
--- NOTE | 2017-10-25 13:17 | RAD REPORT ---
EXAM DESCRIPTION: CT - Abdomen Pelvis Wo Contrast - 10/25/2017 12:35 pm CLINICAL HISTORY: Recent lithotripsy with stent placement on the right, fever, shortness of breath, prior cholecystectomy COMPARISON: CT abdomen and pelvis October 21 TECHNIQUE: Axial [address] imaging of the abdomen and pelvis was performed without IV contrast. No IV contrast was given because of allergy, abnormal renal function, patient refusal or physician re quest. Oral contrast was given. All CT scans are performed using dose optimization technique as appropriate and may include automated exposure control or mA/KV adjustment according to patient size. FINDINGS: Lung findings are detailed in separate CT chest report same date. The liver, spleen and pancreas show no suspicious findings on non-contrast imaging. Cholecystectomy c lips are present. No biliary tree dilatation. No acute hydronephrosis. No perinephric stranding seen. The large 9 centimeter anterior left renal cy st has not changed. Additional renal cysts are present also without clear change. Double-pigtail sten t remains in the right collecting system. In the lower pole calyx on the right there is a 5 millimete r calcification. There is also an adjacent 2 millimeter calcification. These are believed to be fragm ents of a stone previously treated with lithotripsy. No other stone or stone fragment seen along the course of the stent. No bladder calculi. No bladder wall thickening or edema seen. No significant adr enal finding. Isodense renal masses and pyelonephritis cannot be excluded in the absence of IV contra st. Lobulated uterus with calcified fibroid on the left similar to prior imaging. No ovarian abnormality. No dilated bowel loops or bowel wall thickening. No free air, free fluid or inflammatory stranding. N o hernia, mass or bulky lymphadenopathy. No suspicious bony findings. IMPRESSION: No acute GI process. No inflammatory stranding, free air or emergent CT finding. Double-pigtail stent is in place in the right collecting system. 5 millimeter and 2 millimeter stone fragments are present in the lower pole calices on the right. No hydronephrosis or perinephric stranding. Isodense masses and pyelonephritis are not excluded on st one protocol imaging. Full assessment is limited is the absence of IV contrast.
--- NOTE | 2017-10-25 13:19 | EDPHYS ---
Physician Documentation [facility] Name: Krupa Massey Age: 72 yrs Sex: Female : 1945 Arrival Date: 10/25/2017 Time: 11:38 Bed 26 Private MD: Guillermo Fox, A ED Physician Tito Yun HPI: 10/25 13:15 This 72 yrs old Female presents to ER via Ambulatory with complaints of [place] jr8 by Dr. Fox, Fever, Shortness Of Breath. 13:15 The patient has shortness of breath at rest. Onset: The symptoms/episode began/occurred jr8 acutely, today. Duration: The symptoms are intermittent. The patient's shortness of breath is aggravated by walking. Associated signs and symptoms: Pertinent positives: non-productive cough. Severity of symptoms: At their worst the symptoms were moderate in the emergency department the symptoms have improved mildly. The patient has not experienced similar symptoms in the past. The patient has been recently seen by a physician:. Patient stated that she has had non productive cough for about a month. No fevers or shortness of breath. Saw Dr. Fox for renal stone and had stent placed. Was placed on cipro for fever and had been doing better. Today had ambulated to shower and felt extremely short of breath. Came to ED at that time for evaluation after talking with Dr. oFx . Historical: - Allergies: 11:43 alfagan; itching; hb 11:43 temalol (Rash); hb - Home Meds: 11:43 meloxicam Oral [Active]; Nexium Oral [Active]; hb - PSHx: 11:43 Lithotripsy; Knee surgery; foot; Cholecystectomy; hb - Immunization history:: Adult Immunizations up to date. - Social history:: Smoking status: Patient/guardian denies using tobacco. ROS: 13:15 Eyes: Negative for injury, pain, redness, and discharge, ENT: Negative for injury, jr8 pain, and discharge, Neck: Negative for injury, pain, and swelling, Cardiovascular: Negative for chest pain, palpitations, and edema, Abdomen/GI: Negative for abdominal pain, nausea, vomiting, diarrhea, and constipation, Back: Negative for injury and pain, MS/Extremity: Negative for injury and deformity, Skin: Negative for injury, rash, and discoloration, Neuro: Negative for headache, weakness, numbness, tingling, and seizure. 13:15 Respiratory: Positive for cough, dyspnea on exertion, shortness of breath. Exam: 13:15 Eyes: Pupils equal round and reactive to light, extra-ocular motions intact. Lids and jr8 lashes normal. Conjunctiva and sclera are non-icteric and not injected. Cornea within normal limits. Periorbital areas with no swelling, redness, or edema. ENT: Nares patent. No nasal discharge, no septal abnormalities noted. Tympanic membranes are normal and external auditory canals are clear. Oropharynx with no redness, swelling, or masses, exudates, or evidence of obstruction, uvula midline. Mucous membranes moist. Neck: Trachea midline, no thyromegaly or masses palpated, and no cervical lymphadenopathy. Supple, full range of motion without nuchal rigidity, or vertebral point tenderness. No Meningismus. Cardiovascular: Regular rate and rhythm with a normal S1 and S2. No gallops, murmurs, or rubs. Normal PMI, no JVD. No pulse deficits. Abdomen/GI: Soft, non-tender, with normal bowel sounds. No distension or tympany. No guarding or rebound. No evidence of tenderness throughout. Back: No spinal tenderness. No costovertebral tenderness. Full range of motion. Skin: Warm, dry with normal turgor. Normal color with no rashes, no lesions, and no evidence of cellulitis. MS/ Extremity: Pulses equal, no cyanosis. Neurovascular intact. Full, normal range of motion. Neuro: Awake and alert, GCS 15, oriented to person, place, time, and situation. Cranial nerves II-XII grossly intact. Motor strength 5/5 in all extremities. Sensory grossly intact. Cerebellar exam normal. Normal gait. 13:15 Respiratory: the patient does not display signs of respiratory distress, Respirations: normal, symetrical, no use of accessory muscles, no grunting, no evidence of nasal flaring, no prolonged exhalations, no pursed lip breathing, no retractions, no shallow respirations, no splinting, no tachypnea, Breath sounds: rales, that are mild, are heard in the left posterior lower lobe, right posterior middle lobe and right posterior lower lobe. Vital Signs: 11:42 BP 183 / 85; Pulse 100; Resp 18; Temp 99.1(TE); Pulse Ox 100% on R/A; Weight 82.55 kg; hb Height 5 ft. 6 in. (167.64 cm); Pain 1/10; 12:41 BP 152 / 82; Pulse 91; Resp 17; Pulse Ox 95% on R/A; dh3 14:03 BP 157 / 76; Pulse 88; Resp 18; Pulse Ox 96% on R/A; aj1 15:07 BP 118 / 89; Pulse 102; Resp 20; Pulse Ox 95% on R/A; aj1 11:42 Body Mass Index 29.38 (82.55 kg, 167.64 cm) hb MDM: 11:43 Patient medically screened. jr8 13:15 Data reviewed: vital signs, nurses notes, lab test result(s), radiologic studies, CT [facility] scan, and as a result, I will admit patient. Data interpreted: Pulse oximetry: on room air is 93 %. Interpretation: borderline. Counseling: I had a detailed discussion with the patient and/or guardian regarding: the historical points, exam findings, and any diagnostic results supporting the discharge/admit diagnosis, lab results, radiology results, the need for further work-up and treatment in the hospital. ED course: Patient with ambulation becomes hypoxic and dyspneic. Reviewed case with Dr. Watts. Both in agreement that she should at least be observed overnight and started on a different antibiotic . 10/25 11:54 Order name: CBC with Diff; Complete Time: 12:36 8 10/25 11:54 Order name: Basic Metabolic Panel; Complete Time: 13:01 8 10/25 11:54 Order name: Procalcitonin; Complete Time: 13:12 8 10/25 13:14 Order name: Blood Culture Adult (2) 8 10/25 13:14 Order name: Flu; Complete Time: 13:57 8 10/25 13:44 Order name: Basic Metabolic Panel EDMS 10/25 13:44 Order name: Basic Metabolic Panel EDMS 10/25 13:44 Order name: Basic Metabolic Panel EDMS 10/25 13:44 Order name: Basic Metabolic Panel EDMS 10/25 13:44 Order name: Magnesium EDMS 10/25 13:44 Order name: Magnesium EDMS 10/25 13:44 Order name: Magnesium EDMS 10/25 13:44 Order name: Magnesium EDMS 10/25 13:45 Order name: Urinalysis EDMN 10/25 11:52 Order name: IV; Complete Time: 12:38 [facility] 10/25 11:54 Order name: CT Abd/Pelvis - Without Cont; Complete Time: 13:19 [facility] 10/25 11:54 Order name: CT Chest For PE Angio; Complete Time: 13:01 8 10/25 13:45 Order name: CONS Physician Consult EDMN 10/25 13:45 Order name: Heart Healthy EDMN 10/25 13:45 Order name: Respiratory Therapy Consult EDMN 10/25 13:45 Order name: CBC with Automated Diff EDMN 10/25 13:45 Order name: CBC with Automated Diff EDMS 10/25 13:45 Order name: CBC with Automated Diff EDMN 10/25 13:45 Order name: CBC with Automated Diff EDMN 10/25 13:45 Order name: Chest Pa And Lat (2 Views) EDMN 10/25 13:45 Order name: Chest Pa And Lat (2 Views) EDMN Administered Medications: 14:26 Drug: LevaQUIN 500 mg Volume: 100 ml; Route: IVPB; Infused Over: 60 mins; Site: right aj1 antecubital; 15:30 Follow up: Response: No adverse reaction; IV Status: Completed infusion rk2 Disposition: 10/25/17 13:19 Hospitalization ordered by Irineo Watts for Observation. Preliminary diagnosis is Pneumonia due to other specified bacteria. - Bed requested for Telemetry/MedSurg (observation). - Status is Observation. rk2 - Condition is Stable. - Problem is new. - Symptoms are unchanged. UTI on Admission? No Addendum: 10/29/2017 19:11 Co-signature as Attending Physician, Tito Yun MD. g s Signatures: Dispatcher [employer] [facility] Simona García RN RN aj1 Agnieszka Juarez RN PEPE dw Janak Kaur PA PA jr8 Carmelita Baez RN RN Tito Yun MD MD Jacqueline House RN RN rk2 Corrections: (The following items were deleted from the chart) 10/25 15:34 13:19 Hospitalization Ordered by Irineo Watts DO for Observation. Preliminary diagnosis is Pneumonia due to other specified bacteria. Bed requested for Telemetry/MedSurg (observation). Status is Observation. Condition is Stable. Problem is new. Symptoms are unchanged. UTI on Admission? No. jr8 16:30 15:34 10/25/2017 13:19 Hospitalization Ordered by Irineo Watts DO for Observation. rk2 Preliminary diagnosis is Pneumonia due to other specified bacteria. Bed requested for Telemetry/MedSurg (observation). Status is Observation. Condition is Stable. Problem is new. Symptoms are unchanged. UTI on Admission? No. dw
--- NOTE | 2017-10-25 13:19 | ER ---
Nurse's Notes [facility] Name: Krupa Massey Age: 72 yrs Sex: Female : 1945 Arrival Date: 10/25/2017 Time: 11:38 Bed 26 Private MD: Guillermo Fox A Diagnosis: Pneumonia due to other specified bacteria Presentation: 10/25 11:40 Presenting complaint: Patient states: Had lithotripsy last Wednesday, stent placement hb Wednesday, discharged on Wednesday. Ran fever and became SOB over the weekend. TMAX 101.7. Transition of care: patient was not received from another setting of care. Onset of symptoms was October 22, 2017. Initial Sepsis Screen: Does the patient meet any 2 criteria? No. Patient's initial sepsis screen is negative. Does the patient have a suspected source of infection? No. Patient's initial sepsis screen is negative. Care prior to arrival: None. 11:40 Method Of Arrival: Ambulatory hb 11:40 Acuity: JOSUE 3 hb Triage Assessment: 16:29 General: Appears in no apparent distress. Respiratory: Onset: The symptoms/episode rk2 began/occurred. Respiratory: the patient has mild shortness of breath. Historical: - Allergies: 11:43 alfagan; itching; hb 11:43 temalol (Rash); hb - Home Meds: 11:43 meloxicam Oral [Active]; Nexium Oral [Active]; hb - PSHx: 11:43 Lithotripsy; Knee surgery; foot; Cholecystectomy; hb - Immunization history:: Adult Immunizations up to date. - Social history:: Smoking status: Patient/guardian denies using tobacco. Screenin:55 Abuse screen: Denies threats or abuse. Denies injuries from another. Nutritional aj1 screening: No deficits noted. Tuberculosis screening: No symptoms or risk factors identified. 16:29 Fall Risk None identified. rk2 Assessment: 11:55 General: Appears in no apparent distress. comfortable, Behavior is calm, cooperative, aj1 appropriate for age. Pain: Denies pain. Neuro: Level of Consciousness is awake, alert, obeys commands, Oriented to person, place, time, situation, Speech is normal, Facial symmetry appears normal. Cardiovascular: Denies chest pain, Heart tones S1 S2 present Patient's skin is warm and dry. Rhythm is regular. Respiratory: Reports shortness of breath cough that is non-productive, Airway is patent Respiratory effort is even, unlabored, Respiratory pattern is regular, symmetrical, Breath sounds are clear bilaterally. GI: No signs and/or symptoms were reported involving the gastrointestinal system. : No signs and/or symptoms were reported regarding the genitourinary system. EENT: No signs and/or symptoms were reported regarding the EENT system. Derm: No signs and/or symptoms reported regarding the dermatologic system. Skin is pink, warm \T\ dry. normal. Musculoskeletal: No signs and/or symptoms reported regarding the musculoskeletal system. Circulation, motion, and sensation intact. 13:00 Reassessment: Patient appears in no apparent distress at this time. No changes from aj1 previously documented assessment. Patient and/or family updated on plan of care and expected duration. Pain level reassessed. Patient is alert, oriented x 3, equal unlabored respirations, skin warm/dry/pink. 14:02 Reassessment: Patient appears in no apparent distress at this time. No changes from aj1 previously documented assessment. Patient and/or family updated on plan of care and expected duration. Pain level reassessed. Patient is alert, oriented x 3, equal unlabored respirations, skin warm/dry/pink. 15:07 Reassessment: Patient appears in no apparent distress at this time. No changes from aj1 previously documented assessment. Patient and/or family updated on plan of care and expected duration. Pain level reassessed. Patient is alert, oriented x 3, equal unlabored respirations, skin warm/dry/pink. Vital Signs: 11:42 BP 183 / 85; Pulse 100; Resp 18; Temp 99.1(TE); Pulse Ox 100% on R/A; Weight 82.55 kg; hb Height 5 ft. 6 in. (167.64 cm); Pain 1/10; 12:41 BP 152 / 82; Pulse 91; Resp 17; Pulse Ox 95% on R/A; dh3 14:03 BP 157 / 76; Pulse 88; Resp 18; Pulse Ox 96% on R/A; aj1 15:07 BP 118 / 89; Pulse 102; Resp 20; Pulse Ox 95% on R/A; aj1 11:42 Body Mass Index 29.38 (82.55 kg, 167.64 cm) ED Course: 11:38 Patient arrived in ED. as 11:38 Ruddy, Philmore, MD is Private Physician. as 11:42 Triage completed. hb 11:43 [facility] jr8 11:43 Tito Yun MD is Attending Physician. jr8 11:43 Arm band placed on right wrist. hb 11:46 Simona García, RN is Primary Nurse. aj1 11:55 Patient has correct armband on for positive identification. Placed in gown. Bed in low aj1 position. Call light in reach. Side rails up X 1. 11:55 No provider procedures requiring assistance completed. aj1 12:21 Initial lab(s) drawn, by me, sent to lab. Inserted saline lock: 22 gauge in right aj1 antecubital area, using aseptic technique. Blood collected. 12:26 CT completed. Patient tolerated procedure well. Patient moved to CT via stretcher. jg1 12:35 CT Abd/Pelvis - Without Cont In Process Unspecified. EDMS 12:35 CT Chest For PE Angio In Process Unspecified. EDMS 13:19 Irineo Watts DO is Hospitalizing Provider. jr8 16:29 Patient admitted, IV remains in place. rk2 Administered Medications: 14:26 Drug: LevaQUIN 500 mg Volume: 100 ml; Route: IVPB; Infused Over: 60 mins; Site: right aj1 antecubital; 15:30 Follow up: Response: No adverse reaction; IV Status: Completed infusion rk2 Outcome: 13:19 Decision to Hospitalize by Provider. jr8 16:28 Admitted to Med/surg accompanied by tech. rk2 16:28 Condition: good 16:28 Instructed on the need for admit. 16:30 Patient left the ED. rk2 Signatures: Dispatcher [employer] EDAK Simona García, RN RN aj1 Nelly Alba jg1 Brit Mackey as Janak Kaur PA PA jr8 Carmelita Baez RN RN Ruba Joy [facility] Jacqueline House RN RN rk2
[2017-10-25] MEDS ORDERED: ONDANSETRON 4 MG/2 ML VIAL IV PRN (13:37)
[2017-10-25] MEDS ORDERED: ACETAMINOPHEN 500 MG TAB PO PRN (13:37)
[2017-10-25] MEDS ORDERED: ALBUTEROL 2.5 MG/3 ML NEB SOL NEB PRN (13:37)
[2017-10-25] MEDS ORDERED: BENZONATATE 100 MG CAP PO PRN (13:37)
[2017-10-25] MEDS ORDERED: IPRATROPIUM BROM 0.5MG/2.5ML NEB PRN (13:37)
--- NOTE | 2017-10-25 13:50 | P.HP ---
Certification for Inpatient Patient admitted to: Observation With expected LOS: <2 Midnights Patient will require the following post-hospital care: Other Practitioner: I am a practitioner with admitting privileges, knowledge of patient current condition, hospital course, and medical plan of care. Services: Services provided to patient in accordance with Admission requirements found in Title 42 Section 412.3 of the Code of Federal Regulations Patient History Date of Service: 10/25/17 Primary Care Provider: None; Urology-Dr. Fox Reason for admission: Shortness of breath, fever History of Present Illness: 72-year-old female presented emergency room with shortness of breath and fever. The patient was seen last week for obstructive uropathy. The patient was found to have renal stones. The patient was evaluated by urology. Lithotripsy and stent was placed to the right collecting system. Hearing at time she had some shortness of breath. Echocardiogram was unremarkable. The patient was sent home on Cipro and Flomax. Since that time the patient has had some shortness of breath with exertion. Over the weekend she reported a cough with congestion. Fever was also noted. The patient was evaluated by Urology this morning. Urology sent her to the ER to get further evaluated. ER the patient was evaluated. Patient was hypoxic at times with exertion. The patient did not appear in any acute respiratory distress On lab white count 12.2 , hemoglobin 13. Sodium 137, potassium 3.1, GFR within normal range. Pro calcitonin was elevated at 0.97. Glucose 129. CT scan of the chest showed no pulmonary embolism. Bilateral pneumonia was noted. There may be some underlying interstitial lung disease as this was reported in 2016. CT of the abdomen showed a double pigtail stent to the right collecting system. No hydronephrosis was noted. 5 mm and 2 mm stones noted in the kidney area. Due to nature the findings the patient was admitted for observation. When I saw the patient the ER, she was without any significant shortness of breath. Previous lab showed an elevated white count. Previous CT scan showed possible right lower lobe pneumonia. Allergies brimonidine [From Alphagan P] Allergy (Verified 10/20/17 02:28) Itching timolol Allergy (Verified 10/20/17 02:28) Rash Home medications list reviewed: Yes Home Medications: Esomeprazole Mag Trihydrate [Nexium] 40 mg PO DAILY 10/18/17 Latanoprost Ophth [Xalatan 0.005%*] 1 drop EACH EYE BEDTIME 10/18/17 Meloxicam 15 mg PO DAILY 10/18/17 Hydrocodone 10/APAP 325 [[place] 10/325*] 1 tab PO Q8H PRN 10/20/17 Tamsulosin HCl 1 tab PO DAILY 10/20/17 Ciprofloxacin/Ciprofloxa HCl [Cipro 500 MG Xr Tablet] 500 mg PO BID #20 tbmp.24hr 10/22/17 Docusate [Colace Cap*] 100 mg PO BID #60 cap 10/22/17 Oxybutynin Chloride [Oxybutynin Chloride ER] 10 mg PO DAILY 7 Days #7 tab.er.24 10/22/17 Tramadol HCl [Ultram] 50 mg PO Q6H PRN #28 tablet 10/22/17 - Past Medical/Surgical History Diabetic: No -: Glaucoma -: Rheumatoid arthritis previously on immunosuppressive medication -: GERD -: Nephrolithiasis -: Bilateral partial knee replacement -: lithotripsy -: cholecystectomy -: Cataracts surgery Psychosocial/ Personal History: The patient is a . She has 3 children. 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 - Family History Family History: Reviewed- Non-Contributory - Social History Smoking Status: Never smoker Alcohol use: No CD- Drugs: Yes Caffeine use: Yes Place of Residence: Home Review of Systems General: Fever, Weakness, As per HPI Eyes: Unremarkable ENT: Unremarkable Respiratory: Cough, Shortness of Breath, SOB with Excertion, As per HPI Cardiovascular: Unremarkable Gastrointestinal: Unremarkable Genitourinary: Unremarkable Musculoskeletal: Unremarkable Integumentary: Unremarkable Neurological: Unremarkable Lymphatics: Unremarkable Physical Examination - Physical Exam General: Alert, In no apparent distress, Oriented x3, Cooperative HEENT: Atraumatic, Normocephalic, PERRLA, Mucous membr. moist/pink Neck: Supple, No Thyromegaly Respiratory: Crackles/rales (Bilateral to the bases) Cardiovascular: Normal pulses, Regular rate/rhythm Gastrointestinal: Normal bowel sounds, Soft and benign, Non-distended, No tenderness, No masses, No rebound, No guarding Musculoskeletal: No erythema, No tenderness, No warmth Integumentary: No tenderness/swelling, No erythema, No warmth, No cyanosis Neurological: Normal speech, Normal strength at 5/5 x4 extr, Normal tone, Normal affect - Studies Laboratory Data (last 24 hrs) 10/25/17 12:21: Sodium 137, Potassium 3.1 L, BUN 12, Creatinine 0.67, Glucose 129 H 10/25/17 12:21: WBC 12.2 H D, Hgb 13.0, Hct 38.5, Plt Count 311 D Assessment and Plan - Problems (Diagnosis) (1) Shortness of breath Current Visit: Yes Status: Acute Plan: Shortness of breath secondary to bilateral pneumonia. Will continue with IV Levaquin. Will check echocardiogram. Will wean off oxygen. Will recheck chest x-ray in the morning. Will have pulmonology evaluate the patient. If stable and no requirement for oxygen the patient may be able to be discharged tomorrow. Will have social services designee provide PCPs in the area to establish care and follow up with. Patient may have underlying interstitial lung disease. Await further recommendations from pulmonology (2) Pneumonia Current Visit: Yes Status: Acute Plan: Bilateral pneumonia with possible underlying interstitial lung disease. Will continue with above plan of care. Await recommendations from pulmonology. Qualifiers: Pneumonia type: due to unspecified organism Laterality: bilateral Lung location: lower lobe of lung Qualified Code(s): J18.1 - Lobar pneumonia, unspecified organism (3) Interstitial lung disease Current Visit: Yes Status: Chronic Plan: Likely has underlying interstitial lung disease. (4) Hypokalemia Current Visit: Yes Status: Acute Plan: Will monitor and replace appropriately. Replacement protocol in place. (5) GERD (gastroesophageal reflux disease) Current Visit: Yes Status: Chronic Plan: Will continue with her medication. Qualifiers: Esophagitis presence: esophagitis presence not specified Qualified Code(s) : K21.9 - Gastro-esophageal reflux disease without esophagitis (6) Nephrolithiasis Current Visit: Yes Status: Chronic Plan: Patient with recent obstructive uropathy. Stent in place. Will discuss with urology about the need for possible removal of stent. (7) History of rheumatoid arthritis Current Visit: Yes Status: Chronic Plan: Patient has used immunosuppressive medication in the past. Currently stable this time. (8) Obstructive uropathy Onset Date: 10/20/17 Current Visit: No Status: Acute Plan: Stent in place. Will discuss with urology. Will continue with Flomax. Discharge Plan: Home Plan to discharge in: 24 Hours - Advance Directives Does patient have a Living Will: Yes Does patient have a Durable POA for Healthcare: Yes - Code Status/Comfort Care Code Status Assessed: Yes Time Spent Managing Pts Care (In Minutes): 55
[2017-10-25] MEDS ORDERED: Levofloxacin500mg IV 500 MG/100 ML BAG IV SCH (14:00)
[2017-10-25] MEDS ORDERED: Levofloxacin500mg IV 500 MG/100 ML BAG IV ONE (14:06)
[2017-10-25 16:41] VITALS: BMI 29.3
[2017-10-25] MEDS: NA CHLORIDE 0.9% 1,000 ML IV SCH (16:46)
[2017-10-25] MEDS ORDERED: POTASSIUM 25 MEQ EFFERV TAB PO ONE (16:50)
[2017-10-25] MEDS ORDERED: ENOXAPARIN 40 MG/0.4 ML SQ SCH (17:00)
[2017-10-25] MEDS ORDERED: POTASSIUM CL SA 10 MEQ TAB PO ONE (17:07)
[2017-10-25] MEDS ORDERED: TAMSULOSIN 0.4 MG SR CAP PO SCH (21:00)
[2017-10-25 21:02] VITALS: O2SAT 93
[2017-10-25] MEDS: OSELTAMIVIR 75 MG CAP PO SCH (21:23)
[2017-10-26] MEDS: NA CHLORIDE 0.9% 1,000 ML IV SCH ×2 (03:20→05:33)
[2017-10-26 04:55] LABS: Absolute Lymphocytes (CBC) 2.5 K/uL (0.7-4.9); Absolute Monocytes 1.2 K/uL (0.1-1.3); Absolute Neutrophil 8.6 K/uL (1.8-8.0); Basophils % 0.4 % (0-1.3); Eosinophils % 4.1 % (0-4.4); Hematocrit 35.6 % (36.0-45.0); Lymphocytes % 19.3 % (15.3-44.8); MCH 30.4 pg (27.0-35.0); MCV 89.5 fL (80-100); MPV 7.9 fL (7.6-11.3); Monocytes % 9.3 % (3.3-12.3); RBC Red Blood Cell Count 3.98 M/uL (3.86-4.86)
[2017-10-26 05:31] LABS: Magnesium 1.8 mg/dL (1.8-2.5); Potassium 3.7 mEq/L (3.6-5.0)
[2017-10-26] MEDS ORDERED: MAGNESIUM SULFATE 1 gm IVPB 1 GM/100 ML BAG IV ONE (06:12)
[2017-10-26] MEDS ORDERED: POTASSIUM CL SA 10 MEQ TAB PO ONE (06:13)
[2017-10-26] MEDS ORDERED: PANTOPRAZOLE 40MG TABLET PO SCH (06:30)
--- NOTE | 2017-10-26 07:02 | RAD REPORT ---
EXAM DESCRIPTION: RAD - Chest Pa And Lat (2 Views) - 10/26/2017 6:49 am CLINICAL HISTORY: Pneumonia follow-up COMPARISON: CT chest October 25, portable chest October 20 TECHNIQUE: PA and lateral views of the chest were obtained. FINDINGS: The lungs are slightly underinflated. Heart size and vasculature within normal limits. R ight upper lobe airspace disease has improved significantly. Right base is better aerated as well. Th e infiltrate and/ or atelectasis changes of the left base also show improvement. No new or enlarging pleural effusion. There is no pneumothorax. No acute bony finding noted. No aortic abnormality. IMPRESSION: Significant improvement in the right upper lobe airspace disease with each lung base topher wing improvement as well. No new or progressive finding.
--- NOTE | 2017-10-26 08:24 | P.CNS ---
Date of Consult: 10/26/17 Primary Care Provider: None; Urology-Dr. Fox Chief Complaint: Shortness of breath, fever History of Present Illness: Patient is 72 years of age was doing well until she was treated for kidney stones with like her trips Cele developed a fever she had a stent put a became more short of breath was admitted from the emergency room prior to this episode she denies any pulmonary complain patient was evaluated for possible interstitial lung disease in 2016 showed some minimal changes this time she has bilateral ground-glass changes patient has some cough otherwise she is very active is never smoked history of rheumatoid arthritis Allergies brimonidine [From Alphagan P] Allergy (Verified 10/25/17 17:29) Itching timolol Allergy (Verified 10/25/17 17:29) Rash alfagan Allergy (Uncoded 10/25/17 16:40) Unknown temalol Allergy (Uncoded 10/25/17 16:40) Unknown Home Medications: Esomeprazole Mag Trihydrate [Nexium] 40 mg PO DAILY 10/18/17 Latanoprost Ophth [Xalatan 0.005%*] 1 drop EACH EYE BEDTIME 10/18/17 Meloxicam 15 mg PO DAILY 10/18/17 Tamsulosin HCl 1 tab PO DAILY 10/20/17 Ciprofloxacin/Ciprofloxa HCl [Cipro 500 MG Xr Tablet] 500 mg PO BID #20 tbmp.24hr 10/22/17 Docusate [Colace Cap*] 100 mg PO BID #60 cap 10/22/17 Oxybutynin Chloride [Oxybutynin Chloride ER] 10 mg PO DAILY 7 Days #7 tab.er.24 10/22/17 - Past Medical/Surgical History Diabetic: No -: Glaucoma -: Rheumatoid arthritis previously on immunosuppressive medication -: GERD -: Nephrolithiasis -: Bilateral partial knee replacement -: lithotripsy on 10/19/17 and stent placement on 10/24/17 -: cholecystectomy -: Cataracts surgery Psychosocial/ Personal History: The patient is a . She has 3 children. 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 - Family History Mother Medical History: Heart disease, Other (see notes) Notes: CHF Father Medical History: Heart disease, Other (see notes) Notes: CHF Sister Medical History: Liver disease, Other (see notes) Notes: Hep C - Social History Alcohol use: No CD- Drugs: No Caffeine use: Yes Place of Residence: Home Review of Systems 10-point ROS is otherwise unremarkable Physical Examination Temp Pulse Resp BP Pulse Ox 98.1 F 88 18 143/63 H 92 10/26/17 04:00 10/26/17 04:00 10/26/17 04:00 10/26/17 04:00 10/26/17 04:00 General: Alert, Oriented x3 HEENT: Atraumatic Neck: Supple Respiratory: Crackles/rales (Patient has bilateral crackles more prominent at the bases on the and also noticed anteriorly) Cardiovascular: No edema, Regular rate/rhythm Gastrointestinal: Normal bowel sounds, Soft and benign Laboratory Data (last 24 hrs) 10/25/17 12:21: Sodium 137, Potassium 3.1 L, BUN 12, Creatinine 0.67, Glucose 129 H 10/25/17 12:21: WBC 12.2 H D, Hgb 13.0, Hct 38.5, Plt Count 311 D - Problems (1) Interstitial lung disease Current Visit: Yes Status: Chronic Plan: Patient is 72 years of age admitted with some fever shortness of breath bilateral diffuse ground-glass changes prior history of interstitial lung disease although she is denies any cough or shortness of breath or her baseline minimally elevated white count patient is afebrile normotensive saturation satisfactory pro calcitonin is elevated suggest she can be discharged home on some Zithromax and a prednisone follow with me in 2 weeks normal echocardiogram she although patient has rheumatoid arthritis she is not on any immunosuppressive therapy infection does not have a primary care doctor influenza screen is positive
[2017-10-26] MEDS: OSELTAMIVIR 75 MG CAP PO SCH (08:52)
[2017-10-26] MEDS ORDERED: predniSONE 10 MG TAB PO SCH (09:00)
[2017-10-26 09:56] LABS: Urine Appearance CLEAR; Urine Bilirubin NEGATIVE (NEG); Urine Blood 3+ (NEG); Urine Color YELLOW; Urine Glucose NEGATIVE (NEG); Urine Protein NEGATIVE (NEG); Urine Urobilinogen 0.2 mg/dL (0.2-1.0)
[2017-10-26 10:11] LABS: Urine Microscopic Reflex ORDER UMIC
[2017-10-26 10:42] LABS: Urine Bacteria <20 /HPF (<20); Urine Culture Reflex Order REFLEXED
[2017-10-26 12:08] VITALS: BP 141/62; TEMP 98.1
--- NOTE | 2017-10-26 13:25 | P.DS ---
Admission Date: 10/25/17 Discharge Date: 10/26/17 Primary Care Provider: None; Urology-Dr. Fox Disposition: ROUTINE DISCHARGE Discharge Condition: FAIR Reason for Admission: Shortness of breath, fever Consultations: Dr Acosta - Problems (1) Influenza Current Visit: Yes Status: Acute (2) Pneumonia Onset Date: 10/26/17 Current Visit: Yes Status: Acute Qualifiers: Pneumonia type: due to unspecified organism Laterality: bilateral Lung location: lower lobe of lung Qualified Code(s): J18.1 - Lobar pneumonia, unspecified organism (3) GERD (gastroesophageal reflux disease) Onset Date: 10/26/17 Current Visit: Yes Status: Chronic Qualifiers: Esophagitis presence: esophagitis presence not specified Qualified Code(s) : K21.9 - Gastro-esophageal reflux disease without esophagitis Brief History of Present Illness: 72 year old female recently discharged form hospital for obstructive uropathy s/ p lithotripsy and stent placement who had gone for her routine follow up with her urologist and complained of cough and fever.On arrival she was found to be slightly hypoxic, with leuckocytosis of 12.2.Chest xray revealed bilateral pneumonia for which she was admitted tot [facility]. 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 Vital Signs/Physical Exam: Temp Pulse Resp BP Pulse Ox 98.1 F 67 16 141/62 H 96 10/26/17 12:00 10/26/17 12:00 10/26/17 12:00 10/26/17 12:10/26/17 12:00 General: Alert, In no apparent distress, Oriented x3 HEENT: Atraumatic, Normocephalic, PERRLA Neck: Supple, JVD not distended, No Thyromegaly, No LAD Respiratory: Normal air movement Cardiovascular: No edema, Normal pulses, Regular rate/rhythm, Normal S1 S2, No gallops, No rubs, No murmurs Gastrointestinal: Normal bowel sounds, Soft and benign, Non-distended, W/out hepatosplenomegaly Musculoskeletal: No clubbing, No swelling, No erythema, No warmth Laboratory Data at Discharge: WBC 12.9 K/uL (4.3-10.9) H 10/26/17 04:10 Hgb 12.1 g/dL (12.0-15.0) 10/26/17 04:10 Hct 35.6 % (36.0-45.0) L 10/26/17 04:10 Plt Count 317 K/uL (152-406) 10/26/17 04:10 Sodium 140 mEq/L (135-145) 10/26/17 04:10 Potassium 3.7 mEq/L (3.6-5.0) 10/26/17 04:10 BUN 14 mg/dL (6-20) 10/26/17 04:10 Creatinine 0.85 mg/dL (0.44-1.00) 10/26/17 04:10 Glucose 115 mg/dL (65-120) 10/26/17 04:10 Magnesium 1.8 mg/dL (1.8-2.5) 10/26/17 04:10 Home Medications: Esomeprazole Mag Trihydrate [Nexium] 40 mg PO DAILY 10/18/17 Latanoprost Ophth [Xalatan 0.005%*] 1 drop EACH EYE BEDTIME 10/18/17 Meloxicam 15 mg PO DAILY 10/18/17 Tamsulosin HCl 1 tab PO DAILY 10/20/17 Docusate [Colace Cap*] 100 mg PO BID #60 cap 10/22/17 Oxybutynin Chloride [Oxybutynin Chloride ER] 10 mg PO DAILY 7 Days #7 tab.er.24 10/22/17 Ciprofloxacin/Ciprofloxa HCl [Cipro 500 MG Xr Tablet] 500 mg PO BID #20 tbmp.24hr 10/26/17 Oseltamivir [Tamiflu*] 75 mg PO BID 4 Days #8 cap 10/26/17 Prednisone [Deltasone*] 10 mg PO DAILY 7 Days #7 tab 10/26/17 Tamsulosin [Flomax*] 0.4 mg PO BEDTIME cap 10/26/17 New Medications: Ciprofloxacin/Ciprofloxa HCl [Cipro 500 MG Xr Tablet] 500 mg PO BID #20 tbmp.24hr Oseltamivir [Tamiflu*] 75 mg PO BID 4 Days #8 cap Prednisone [Deltasone*] 10 mg PO DAILY 7 Days #7 tab Patient Discharge Instructions: Return to ER for new or worsening symptoms Diet: Regular Activity: Ad howard Followup: Dennis Chao MD [ACTIVE - CAN ADMIT] - 1-2 Weeks
== END 2017-10-26 14:19 | disposition home or self-care (01) ==
LOC: ER 11:37 → ERHOLD 13:38 → 4TH 15:39
PROVIDERS: ADMIT Physician Assistant; ATTEND Family Medicine
DX: J11.00 Influenza due to unidentified influenza virus with unspecified type of pneumonia (principal); K21.9 Gastro-esophageal reflux disease without esophagitis; J84.9 Interstitial pulmonary disease, unspecified; E87.6 Hypokalemia; H40.9 Unspecified glaucoma
CPT/HCPCS: 36415; 71046; 71275; 74176; 80048; 81003; 81015; 83735; 84132; 84145; 85025; 87040; 87086; 87088; 87804; 94640; 96365; 99285; G0378; J1650; J2405; J3475; J7030; J7512; Q9967

== ENCOUNTER 2017-11-18 09:36 | Observation (INO) | payer OTHER ==
[2017-11-18 10:49] LABS: Absolute Lymphocytes (CBC) 2.2 K/uL (0.7-4.9); Absolute Monocytes 1.2 K/uL (0.1-1.3); Absolute Neutrophil 10.1 K/uL (1.8-8.0); Basophils % 0.5 % (0-1.3); Eosinophils % 1.9 % (0-4.4); Hematocrit 38.8 % (36.0-45.0); MCH 29.7 pg (27.0-35.0); MCV 89.7 fL (80-100); MPV 7.6 fL (7.6-11.3); Monocytes % 8.6 % (3.3-12.3); RBC Red Blood Cell Count 4.32 M/uL (3.86-4.86)
[2017-11-18 11:01] LABS: Protime INR 1.08
[2017-11-18 11:26] LABS: Potassium 4.4 mEq/L (3.6-5.0)
[2017-11-18] MEDS ORDERED: ONDANSETRON 4 MG/2 ML VIAL IV PRN (13:17)
[2017-11-18] MEDS ORDERED: NA CHLORIDE 0.9% 1,000 ML IV SCH (14:00)
--- NOTE | 2017-11-18 14:14 | P.SSS ---
Patient History Date of Service: 11/18/17 Reason for admission: Right Ureteral Stone History of Present Illness: This is a 72-year-old female with significant past medical history of GERD, rheumatoid arthritis, who presented to the urology office c/o right-sided CVA tenderness, fever and chills for past couple of days. Patient stated that her symptoms has been progressively getting worse and she has not started to be nauseous. Patient does have a history of kidney stones in the past and knows that the pain that she is experiencing is from the kidney stone. Urology saw the patient at bedside patient to be directly admitted to the hospital for a cystoscopy procedure and stent placement for her right side urethral stone. Patient was sent over to the front office from neurology's office to be admitted to the hospital. After the procedure patient will be most likely discharged home under stable condition. Patient is to follow up with Dr. Fox in his office on Wednesday to schedule for lithotripsy on Wednesday. Allergies brimonidine [From Alphagan P] Allergy (Verified 10/25/17 17:29) Itching timolol Allergy (Verified 10/25/17 17:29) Rash alfagan Allergy (Uncoded 10/25/17 16:40) Unknown temalol Allergy (Uncoded 10/25/17 16:40) Unknown Home Medications: Esomeprazole Mag Trihydrate [Nexium] 40 mg PO DAILY 10/18/17 Meloxicam 15 mg PO DAILY 10/18/17 Tamsulosin HCl 1 tab PO DAILY 10/20/17 - Past Medical/Surgical History Has patient received pneumonia vaccine in the past: No Diabetic: No -: Glaucoma -: Rheumatoid arthritis previously on immunosuppressive medication -: GERD -: Nephrolithiasis -: Bilateral partial knee replacement -: lithotripsy on 10/19/17 and stent placement on 10/24/17 -: cholecystectomy -: Cataracts surgery Psychosocial/ Personal History: The patient is a . She has 3 children. 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 - Family History Mother -: Heart disease, Other (see notes) Notes: CHF Father -: Heart disease, Other (see notes) Notes: CHF Sister -: Liver disease, Other (see notes) Notes: Hep C - Social History Smoking Status: Never smoker Alcohol use: No CD- Drugs: No Caffeine use: Yes Place of Residence: Home Review of Systems General: As per HPI Physical Examination - Physical Exam General: Alert, In no apparent distress HEENT: Atraumatic Neck: Supple Respiratory: Clear to auscultation bilaterally, Normal air movement Cardiovascular: Regular rate/rhythm, Normal S1 S2 Gastrointestinal: Normal bowel sounds, Soft and benign, Non-distended, No tenderness Musculoskeletal: Tenderness (CVA tenderness ) Integumentary: No rashes Neurological: Normal speech, Normal strength at 5/5 x4 extr, Normal tone Lymphatics: No axilla or inguinal lymphadenopathy - Studies Laboratory Data (last 24 hrs) 11/18/17 10:29: Sodium 135, Potassium 4.4, BUN 15, Creatinine 1.32 H, Glucose 108 11/18/17 10:29: PT 12.7 H, INR 1.08, APTT 29.3 11/18/17 10:29: WBC 13.9 H, Hgb 12.9, Hct 38.8, Plt Count 240 - Diagnosis (Problem(s)) (1) Nephrolithiasis Onset Date: 10/26/17 Current Visit: No Status: Chronic Plan: Right urethral Stone -IV fluids and IV abx -Cystoscopy with Stent placement today -Urology on board -TX post procedure (2) GERD (gastroesophageal reflux disease) Onset Date: 10/26/17 Current Visit: No Status: Chronic Qualifiers: Esophagitis presence: without esophagitis Qualified Code(s): K21.9 - Gastro -esophageal reflux disease without esophagitis (3) History of rheumatoid arthritis Current Visit: No Status: Chronic - Disposition Disposition: ROUTINE DISCHARGE Condition: GOOD Patient Discharge Instructions: Please f/u with Dr Fox in his clinic in 1 day to schedule your lithotripsy on wednesday Diet: Regular Activity: Ad howard
[2017-11-18 14:39] VITALS: BMI 29.7
[2017-11-18] MEDS ORDERED: Ringers Lactate 1,000 ML IV ONE (15:27)
[2017-11-18] MEDS ORDERED: GENTAMICIN 80 MG/100 ML BAG 80 MG/100 ML BAG IV ONE (15:27)
[2017-11-18] MEDS ORDERED: MIDAZOLAM HCL 2 MG/2 ML INJ ONE (16:17)
[2017-11-18] MEDS ORDERED: PROPOFOL 200 MG/20 ML VIAL IV ONE (16:17)
[2017-11-18] MEDS ORDERED: ONDANSETRON HCL 40 MG/20 ML VIAL ONE (16:18)
[2017-11-18] MEDS ORDERED: FENTANYL CITR 100 MCG/2 ML ONE (16:18)
[2017-11-18] MEDS ORDERED: LIDOCAINE 2% MPF 5 ML VIAL ONE (16:18)
[2017-11-18] MEDS ORDERED: PNEUMOCOCCAL VACCINE 0.5 ML IMVAC ONE (17:00)
--- NOTE | 2017-11-18 17:04 | RAD REPORT ---
EXAM DESCRIPTION: RAD - Urethrocystogrphy Retrograde - 11/18/2017 4:53 pm CLINICAL HISTORY: Right ureter stent placement. COMPARISON: None. FINDINGS: Fluoroscopy of the abdomen was performed as part of a right ureter stent placement. Detail s of the procedure are not available.
[2017-11-18 17:41] VITALS: O2SAT 95
[2017-11-18 18:14] VITALS: BP 141/63; TEMP 98.7
[2017-11-18] MEDS ORDERED: GENTAMICIN 80 MG/100 ML BAG 80 MG/100 ML BAG IV SCH (21:00)
--- NOTE | 2017-11-19 06:58 | EKG ---
Test Date: 2017-11-18 Test Time: 10:30:04 Fast Food Cashier: NUVIA MEASUREMENT RESULTS: Intervals: Rate: 82 LA: 164 QRSD: 90 QT: 392 QTc: 457 [place]: P: 38 LA: 164 QRS: 9 T: 24 INTERPRETIVE STATEMENTS: Sinus rhythm with occasional premature ventricular complexes Otherwise normal ECG Compared to ECG 10/18/2017 11:34:42 Ventricular premature complex(es) now present Electronically Signed On 11-19-17 06:55:43 CDT by Beau Wood
== END 2017-11-18 19:25 | disposition home or self-care (01) ==
LOC: 2ND 09:45
PROVIDERS: ADMIT Family Medicine; ATTEND Family Medicine
PROC: 0T768DZ Dilation of Right Ureter with Intraluminal Device, Via Natural or Artificial Opening Endoscopic (ICD-10-PCS; principal; 2017-11-18 16:30)
DX: N20.1 Calculus of ureter (principal); Z87.442 Personal history of urinary calculi; K21.9 Gastro-esophageal reflux disease without esophagitis; M06.9 Rheumatoid arthritis, unspecified
CPT/HCPCS: 36415; 51610; 52332; 74450; 80048; 85025; 85610; 85730; 87086; 87088; 93005; G0378; G0379; J1580; J2250; J2405; J3010; Q9967; J7030

== ENCOUNTER 2017-11-23 10:34 | Day surgery (SDC) | payer OTHER ==
[2017-11-23] MEDS ORDERED: Ringers Lactate 1,000 ML IV ONE (11:03)
[2017-11-23 11:26] LABS: Urine Appearance CLOUDY; Urine Bilirubin NEGATIVE (NEG); Urine Blood 3+ (NEG); Urine Color YELLOW; Urine Glucose NEGATIVE (NEG); Urine Protein 1+ (NEG); Urine Specific Gravity 1.015 (1.005-1.030); Urine Urobilinogen 0.2 mg/dL (0.2-1.0)
[2017-11-23] MEDS ORDERED: GENTAMICIN 100 MG/100 ML BAG 100 MG/100 ML BAG IV ONE (11:32)
[2017-11-23 11:39] LABS: Potassium 4.1 mEq/L (3.6-5.0); Protime INR 1.05
[2017-11-23 11:47] LABS: Urine Microscopic Reflex ORDER UMIC
[2017-11-23 11:49] LABS: Absolute Lymphocytes (CBC) 2.6 K/uL (0.7-4.9); Absolute Monocytes 0.9 K/uL (0.1-1.3); Absolute Neutrophil 10.2 K/uL (1.8-8.0); Basophils % 0.5 % (0-1.3); Eosinophils % 4.6 % (0-4.4); Hematocrit 39.5 % (36.0-45.0); Lymphocytes % 17.8 % (15.3-44.8); MCH 29.1 pg (27.0-35.0); MCV 89.7 fL (80-100); MPV 7.9 fL (7.6-11.3); Monocytes % 6.3 % (3.3-12.3)
[2017-11-23 12:22] LABS: Urine Bacteria <20 /HPF (<20); Urine Culture Reflex Order REFLEXED; Urine Mucus 1+ /HPF (NONE SEEN); Urine RBC 20-50 /HPF (NONE SEEN)
[2017-11-23] MEDS ORDERED: PROPOFOL 200 MG/20 ML VIAL IV ONE (12:39)
[2017-11-23] MEDS ORDERED: FENTANYL CITR 100 MCG/2 ML ONE (12:40)
[2017-11-23] MEDS ORDERED: MIDAZOLAM HCL 2 MG/2 ML INJ ONE (12:40)
[2017-11-23] MEDS ORDERED: ONDANSETRON HCL 40 MG/20 ML VIAL ONE (12:41)
--- NOTE | 2017-11-23 13:06 | RAD REPORT ---
EXAM DESCRIPTION: RAD - Abdomen 1 View (KUB) - 11/23/2017 12:59 pm CLINICAL HISTORY: Right-sided kidney stone, pending lithotripsy COMPARISON: November 17 FINDINGS: Double-pigtail stent is in place in the right collecting system. Calcification overlying t he distal pigtail is a phlebolith unrelated to the system. The mid right pelvic ureteral calculus seen on the prior study has migrated distally 1 centimeter. Numerous phleboliths are seen in the left side pelvis and pelvic floor. Bowel gas pattern is nonspecific. No obstruction, free air or acute bowel finding. No significant bony findings IMPRESSION: Double-pigtail stent is in place in the right collecting system. The obstructing distal right ureteral calculus has migrated distally 1 centimeter since November 17.
[2017-11-23] MEDS ORDERED: EPHEDRINE SULF 50 MG/5 ML SYR ONE (13:59)
[2017-11-23 14:29] VITALS: O2SAT 95
--- NOTE | 2017-11-23 15:00 | EKG ---
Test Date: 2017-11-23 Test Time: 10:42:24 Steam Hammer Operator: BROOKE MEASUREMENT RESULTS: Intervals: Rate: 93 [place]: 160 QRSD: 88 QT: 362 QTc: 450 [place]: P: 49 [place]: 160 QRS: -1 T: 26 INTERPRETIVE STATEMENTS: Normal sinus rhythm Anterior infarct, age undetermined Abnormal ECG Compared to ECG 11/18/2017 10:30:04 Myocardial infarct finding now present Ventricular premature complex(es) no longer present Electronically Signed On 11-23-17 14:59:01 CDT by Beau Wood
[2017-11-23 15:02] VITALS: BP 141/59; TEMP 97.2
== END 2017-11-23 15:30 | disposition home or self-care (01) ==
LOC: OR 10:34
PROVIDERS: ATTEND Urology
DX: N20.2 Calculus of kidney with calculus of ureter (principal); Q62.39 Other obstructive defects of renal pelvis and ureter; K21.9 Gastro-esophageal reflux disease without esophagitis; M06.9 Rheumatoid arthritis, unspecified; H40.9 Unspecified glaucoma; Z90.49 Acquired absence of other specified parts of digestive tract
CPT/HCPCS: 36415; 50590; 74018; 80048; 85025; 85610; 85730; 87086; 87088; 93005; J1580; J2250; J2405; J3010; 81003; 81015

== ENCOUNTER 2021-04-17 11:31 | Day surgery (SDC) | payer OTHER ==
[2021-04-15 12:14] LABS: Basophils % 0.4 % (0-1.3); Lymphocytes % 23.9 % (15.3-44.8); RBC Red Blood Cell Count 4.17 M/uL (3.86-4.86)
[2021-04-15 12:17] LABS: Protime INR 0.99
[2021-04-15 12:22] LABS: Potassium 3.7 mmol/L (3.5-5.1)
--- NOTE | 2021-04-15 15:04 | RAD REPORT ---
EXAM DESCRIPTION: RAD - Chest Pa And Lat (2 Views) - 04/15/2021 12:55 pm CLINICAL HISTORY: PRE-OP, pending heart catheterization, hypertension, shortness of breath, breast c ancer history COMPARISON: August 2020 TECHNIQUE: Frontal and lateral views of the chest were obtained. FINDINGS: The lungs are underinflated. Prominent baseline interstitial pattern is present not clearl y different from comparison. No mass or abnormality of either hilar region. Heart size is normal and central vasculature is within normal limits. No pleural effusion or pneu mothorax seen. No acute bony finding noted. No aortic abnormality. IMPRESSION: Chronic interstitial pattern is present accentuated by shallow inspiration. Chest is not clearly different from the August comparison study.
--- NOTE | 2021-04-15 16:41 | EKG ---
Test Date: 2021-04-15 Test Time: 10:10:16 Pari Mut[employer] Ticket Seller: ALYSHA MEASUREMENT RESULTS: Intervals: Rate: 86 AR: 168 QRSD: 88 QT: 384 QTc: 459 [place]: P: 42 AR: 168 QRS: 23 T: 16 INTERPRETIVE STATEMENTS: Sinus rhythm with occasional premature ventricular complexes Low voltage QRS Cannot rule out Anterior infarct, age undetermined Abnormal ECG Compared to ECG 11/23/2017 10:42:24 Ventricular premature complex(es) now present Low QRS voltage now present Myocardial infarct finding still present Electronically Signed On 04-15-21 16:40:51 CDT by Beau Wood
[~2021-04-17 11:31] MED LIST: NA CHLORIDE 0.9% 500 ML ONE
[2021-04-17] MEDS ORDERED: MIDAZOLAM HCL 2 MG/2 ML INJ ONE (13:12)
[2021-04-17] MEDS ORDERED: FENTANYL CITR 100 MCG/2 ML ONE (13:12)
[2021-04-17] MEDS ORDERED: NITROGLYCERIN 100 MCG/ML SYR (for cath lab use only) IV ONE (13:13)
[2021-04-17] MEDS ORDERED: HEPARIN 5000 UNIT/ML 1 ML VIAL ONE (13:13)
[2021-04-17] MEDS ORDERED: ATROPINE SULF 1 MG/10 ML SYR IV ONE (13:13)
[2021-04-17] MEDS ORDERED: NITROGLYCERIN/D5W 25 MG/250 ML BTL IV ONE (13:13)
[2021-04-17] MEDS ORDERED: VERAPAMIL HCL 10 MG/4 ML VIAL IV ONE (13:13)
[2021-04-17 14:10] VITALS: TEMP 97.5
--- NOTE | 2021-04-17 14:20 | OP ---
Date of Procedure: 04/17/2021 Surgeon: EUDARDO BRODERICK Procedures Performed: 1.Selective coronary angiogram. 2.Right heart catheterization. Access: Right radial artery 6-[place] closed with TR band and right IJ 7-[place] closed with manual pr essure. Complications: None. Bleeding: Less than 10 mL. Anesthesia: Total sedation time was 25 minutes. Description Of Procedure: After risks, benefits, and alternatives were explained, the patient agreed to procedure and signed informed consent. The patient was brought into the cardiac catheterization laboratory, prepped and draped in usual sterile fashion. Then, we accessed right radial artery using pediatric micropuncture kit and placed a 6-[place] slender sheath and accessed right IJ using ultraso und guidance and micropuncture kit and placed a 7-[place] sheath. Then, I took balloon-tippe d 7-[place] catheter through the right IJ into the right atrium, right ventricle, the pulmonary a rtery and wedge and took pressure waveform and then obtained thermodilution cardiac output. I remove d the [place] and then I took a 5-[place] 4.0 catheter over the J-wire through the radial artery in to the aortic root, engaged the left main and right coronary artery, took standard views, and then re moved the catheter and sheath, and placed TR band with good hemostasis. Findings: 1.Left main; large and normal. 2.LAD; large and normal. 3.Left circumflex; large and normal. 4.RCA; large dominant and normal. 5.Right heart catheterization numbers: RA pressure was 4. RV pressure was 32/2 with mean of 4. PA pressure was 35/60, mean of 17. Pulmonary wedge was 10. Cardiac output was 5.59 L/minute. Conclusion: 1.Normal coronary arteries. 2.Normal filling pressures. SR/MODL Voice ID: [id number] Report ID: [id number]
[2021-04-17 15:57] VITALS: O2SAT 98
[2021-04-17 16:48] VITALS: BP 126/58
== END 2021-04-17 17:36 | disposition home or self-care (01) ==
LOC: CCL 11:31
PROVIDERS: ATTEND Internal Medicine
DX: R06.02 Shortness of breath (principal); I10 Essential (primary) hypertension; E78.5 Hyperlipidemia, unspecified; Z88.8 Allergy status to other drugs, medicaments and biological substances; Z20.822 Contact with and (suspected) exposure to COVID-19
CPT/HCPCS: 93005; 85025; 80048; 36415; 85610; 85730; 71046; 93460; U0003; C1893; J1644; J3010; J7040; 93456; J2250

== ENCOUNTER 2023-08-23 10:38 | Observation (INO) | payer OTHER ==
[2023-08-23 11:08] LABS: Absolute Lymphocytes (CBC) 2.7 K/uL (0.7-4.9); Hematocrit 40.8 % (36.0-45.0); Lymphocytes % 23.5 % (15.3-44.8); MCV 90.1 fL (80-100); MPV 7.1 fL (7.6-11.3); Platelets 305 thou/uL (152-406); RBC Red Blood Cell Count 4.53 M/uL (3.86-4.86)
[2023-08-23] MEDS ORDERED: SOTALOL HCL 80 MG TAB ONE (11:16)
[2023-08-23 11:27] LABS: Albumin 3.8 g/dL (3.4-5.0); Bilirubin Direct 0.2 mg/dL (0-0.2); Bilirubin Indirect, Calculated 0.4 mg/dL (0.2-0.8); Bilirubin Total 0.6 mg/dL (0.2-1.0); Magnesium 1.9 mg/dL (1.6-2.4); Potassium 3.8 mEq/L (3.5-5.1); Protein, Total 7.8 g/dL (6.4-8.2); Troponin High Sensitivity 12.4 pg/mL (<58.9)
--- NOTE | 2023-08-23 11:35 | ER ---
Nurse's Notes [facility] Name: Krupa Massey Age: 78 yrs Sex: Female : 1945 Arrival Date: 08/23/2023 Time: 10:38 Bed 5 Private MD: Diagnosis: Unspecified atrial fibrillation Presentation: 08/23 10:44 Chief complaint: Patient states: Sent over by Dr Menon to be started on sotalol. [facility] 10:44 Coronavirus screen: Vaccine status: Patient reports receiving the 2nd dose of the covid nj1 vaccine. Ebola Screen: Patient denies travel to an Ebola-affected area in the 21 days before illness onset. Initial Sepsis Screen: Does the patient meet any 2 criteria? HR > 90 bpm. No. Patient's initial sepsis screen is negative. Does the patient have a suspected source of infection? No. Patient's initial sepsis screen is negative. Risk Assessment: Do you want to hurt yourself or someone else? Patient reports no desire to harm self or others. Onset of symptoms was August 23, 2023. 10:44 Method Of Arrival: Ambulatory [facility] 10:44 Acuity: JOSUE 3 nj Historical: - Allergies: 10:55 alfagan; itching; nj1 10:55 temalol (rash); nj1 - Home Meds: 11:38 esomeprazole magnesium 40 mg oral capsule,delayed release (e.c.) daily [Active]; iw losartan 100 mg oral tablet daily [Active]; hydrochlorothiazide 25 mg Oral tablet daily [Active]; metoprolol succinate 25 mg oral Tablet, Extended Release 24 hr daily [Active]; nortriptyline 10 mg oral capsule daily [Active]; rosuvastatin 5 mg oral tablet daily [Active]; Eliquis 5 mg oral tablet 2 times per day [Active]; latanoprost 0.005 % ophthalmic (eye) drops daily [Active]; AREDS twice a day [Active]; biotin 5,000 mcg oral tablet,chewable daily [Active]; Vitamin E 400 i.u. Oral daily [Active]; - PMHx: 10:55 Hypertensive disorder; Atrial fibrillation; Neuropathy; nj1 - Immunization history:: Client reports receiving the 2nd dose of the Covid vaccine. - Social history:: Smoking status: Patient denies any tobacco usage or history of. Screenin:50 [facility] ED Fall Risk Assessment (Adult) History of falling in the last 3 months, iw including since admission Score/Fall Risk Level 0 - 2 = Low Risk. Abuse screen: Denies threats or abuse. Denies injuries from another. Nutritional screening: No deficits noted. Tuberculosis screening: No symptoms or risk factors identified. Assessment: 11:50 General: Appears in no apparent distress. Behavior is calm, cooperative. Pain: Denies iw pain. Neuro: Level of Consciousness is awake, alert, obeys commands, Oriented to person, place, time, situation, Moves all extremities. Full function. Cardiovascular: Denies chest pain, shortness of breath, Patient's skin is warm and dry. Respiratory: Respiratory effort is even, unlabored, Respiratory pattern is regular, symmetrical. GI: Abdomen is non-distended. Derm: Skin is intact, is healthy with good turgor. Musculoskeletal: Range of motion: intact in all extremities. Vital Signs: 10:44 BP 131 / 81; Pulse 108; Resp 17; Temp 98.3(O); Pulse Ox 98% on R/A; Weight 77.11 kg; nj1 Height 5 ft. 6 in. ; 11:51 Pulse 65; Resp 16; Pulse Ox 97% on R/A; iw 10:44 Body Mass Index 27.44 (77.11 kg, 167.64 cm) nj1 ED Course: 10:42 Patient arrived in ED. im 10:42 Adrian Lopez MD is Attending Physician. rt 10:54 Triage completed. nj1 10:55 Arm band placed on. nj1 11:00 Cecily Fuentes RN is Primary Nurse. iw 11:08 EKG done, by ED staff, reviewed by Adrian Lopez MD. em1 11:08 Inserted saline lock: 20 gauge in right antecubital area, using aseptic technique. iw 11:35 Susan De Luna MD is Hospitalizing Provider. rt Administered Medications: 11:26 Drug: Sotalol PO 80 mg PO once Route: PO; iw 12:00 Follow up: Response: No adverse reaction iw Outcome: 11:35 Decision to Hospitalize by Provider. rt 13:40 Patient left the ED. iw Signatures: Cecily Fuentes RN RN iw Sonny Mackey em1 Adrian Lopez MD MD rt Elisa Coleman RN RN nj1 Haley Villafuerte im
--- NOTE | 2023-08-23 11:35 | EDPHYS ---
Physician Documentation [facility] Name: Krupa Massey Age: 78 yrs Sex: Female : 1945 Arrival Date: 08/23/2023 Time: 10:38 Bed 5 Private MD: ED Physician Adrian Lopez HPI: 08/23 10:49 This 78 yrs old Female presents to ER via Unassigned with complaints of Sent by rt . 10:49 Patient was sent to the ED with request of her esl instructional assistant for initiation of sotalol. rt This for A-fib. Patient denies any symptoms currently. Denies chest pain, shortness of breath. No other aggravating or elevating factors.. Historical: - Allergies: 10:55 alfagan; itching; nj1 10:55 temalol (rash); nj1 - Home Meds: 11:38 esomeprazole magnesium 40 mg oral capsule,delayed release (e.c.) daily [Active]; iw losartan 100 mg oral tablet daily [Active]; hydrochlorothiazide 25 mg Oral tablet daily [Active]; metoprolol succinate 25 mg oral Tablet, Extended Release 24 hr daily [Active]; nortriptyline 10 mg oral capsule daily [Active]; rosuvastatin 5 mg oral tablet daily [Active]; Eliquis 5 mg oral tablet 2 times per day [Active]; latanoprost 0.005 % ophthalmic (eye) drops daily [Active]; AREDS twice a day [Active]; biotin 5,000 mcg oral tablet,chewable daily [Active]; Vitamin E 400 i.u. Oral daily [Active]; - PMHx: 10:55 Hypertensive disorder; Atrial fibrillation; Neuropathy; nj1 - Immunization history:: Client reports receiving the 2nd dose of the Covid vaccine. - Social history:: Smoking status: Patient denies any tobacco usage or history of. ROS: 10:49 Constitutional: Negative for fever, chills, and weight loss, Cardiovascular: Negative rt for chest pain, palpitations, and edema, Respiratory: Negative for shortness of breath, cough, wheezing, and pleuritic chest pain, Abdomen/GI: Negative for abdominal pain, nausea, vomiting, diarrhea, and constipation, MS/Extremity: Negative for injury and deformity, Skin: Negative for injury, rash, and discoloration, Neuro: Negative for headache, weakness, numbness, tingling, and seizure, Psych: Negative for depression, anxiety, suicide ideation, homicidal ideation, and hallucinations, Exam: 10:49 Constitutional: This is a well developed, well nourished patient who is awake, alert, rt and in no acute distress. Head/Face: Normocephalic, atraumatic. Chest/axilla: Normal chest wall appearance and motion. Nontender with no deformity. No lesions are appreciated. Cardiovascular: Regular rate and rhythm with a normal S1 and S2. No gallops, murmurs, or rubs. Normal PMI, no JVD. No pulse deficits. Respiratory: Lungs have equal breath sounds bilaterally, clear to auscultation and percussion. No rales, rhonchi or wheezes noted. No increased work of breathing, no retractions or nasal flaring. Abdomen/GI: Soft, non-tender, with normal bowel sounds. No distension or tympany. No guarding or rebound. No evidence of tenderness throughout. Skin: Warm, dry with normal turgor. Normal color with no rashes, no lesions, and no evidence of cellulitis. MS/ Extremity: Pulses equal, no cyanosis. Neurovascular intact. Full, normal range of motion. Neuro: Awake and alert, GCS 15, oriented to person, place, time, and situation. Cranial nerves II-XII grossly intact. Motor strength 5/5 in all extremities. Sensory grossly intact. Cerebellar exam normal. Normal gait. Psych: Awake, alert, with orientation to person, place and time. Behavior, mood, and affect are within normal limits. 11:36 ECG was reviewed by the Attending Physician. rt Vital Signs: 10:44 BP 131 / 81; Pulse 108; Resp 17; Temp 98.3(O); Pulse Ox 98% on R/A; Weight 77.11 kg; nj1 Height 5 ft. 6 in. ; 11:51 Pulse 65; Resp 16; Pulse Ox 97% on R/A; iw 10:44 Body Mass Index 27.44 (77.11 kg, 167.64 cm) nj MDM: 10:45 Patient medically screened. rt 11:35 Differential Diagnosis Atrial fibrillation. Data reviewed: vital signs, nurses notes, rt lab test result(s), EKG. Consideration of Admission/Observation Patient was admitted/placed on observation. Management of patient was discussed with the following: Hospitalist: Agrees to admit. Test considered but Not performed: X-ray: No chest pain, respiratory symptoms, chest x-ray not indicated. Care significantly affected by the following chronic conditions: Hypertension. Counseling: I had a detailed discussion with the patient and/or guardian regarding the historical points, exam findings, and any diagnostic results supporting the discharge/admit diagnosis, lab results, the need for further work-up and treatment in the hospital. 08/23 10:49 Order name: Basic Metabolic Panel; Complete Time: 11: rt 08/23 10:49 Order name: CBC with Diff; Complete Time: :08/23 10:49 Order name: LFT's; Complete Time: : rt 08/23 10:49 Order name: Magnesium; Complete Time: :08/23 10:49 Order name: Troponin HS; Complete Time: 11:08/23 11:56 Order name: CBC with Automated Diff [facility] 08/23 11:56 Order name: CBC with Automated Diff [facility] 08/23 11:56 Order name: Comprehensive Metabolic Panel [facility] 08/23 11:56 Order name: Comprehensive Metabolic Panel [facility] 08/23 11:56 Order name: Lipid Profile [facility] 08/23 11:56 Order name: Lipid Profile [facility] 08/23 11:56 Order name: Protime (+INR) [facility] 08/23 11:56 Order name: Protime (+INR) [facility] 08/23 11:56 Order name: PTT, Activated Partial Thromb [facility] 08/23 11:56 Order name: PTT, Activated Partial Thromb [facility] 08/23 11:56 Order name: T4 Free [facility] 08/23 11:56 Order name: T4 Free [facility] 08/23 11:56 Order name: Thyroid Stimulating Hormone [facility] 08/23 11:56 Order name: Thyroid Stimulating Hormone [facility] 08/23 11:56 Order name: Echo with Doppler [facility] 08/23 11:56 Order name: Echo with Doppler [facility] 08/23 10:49 Order name: EKG; Complete Time: 10:49 rt 08/23 11:56 Order name: CONS Physician Consult [place] 08/23 10:49 Order name: Cardiac monitoring; Complete Time: 1108/23 10:49 Order name: EKG - Nurse/Tech; Complete Time: 11:08 rt 08/23 10:49 Order name: IV Saline Lock; Complete Time: 10:59 rt 08/23 10:49 Order name: Labs collected and sent; Complete Time: 10:59 rt 08/23 10:49 Order name: O2 Per Protocol; Complete Time: : rt 08/23 10:49 Order name: O2 Sat Monitoring; Complete Time: 11: rt EC:36 Rate is 76 beats/min. Rhythm is regular, Normal Sinus Rhythm with No ectopy. QRS [place] rt is Normal. CA interval is normal. QRS interval is normal. QT interval is normal. No Q waves. T waves are Normal. No ST changes noted. Administered Medications: : Drug: Sotalol PO 80 mg PO once Route: PO; iw 12:00 Follow up: Response: No adverse reaction iw Disposition Summary: 08/23/23 11:35 Hospitalization Ordered Notes: Hospitalization Status: Observation rt Provider: Susan De Luna rt Location: Telemetry/MedSurg (observation) rt Condition: Stable rt Problem: new rt Symptoms: are unchanged rt Bed/Room Type: Standard rt Room Assignment: 419(08/23/23 12:48) bd Diagnosis - Unspecified atrial fibrillation rt Forms: - Medication Reconciliation Form rt - SBAR form rt - Leadership Thank You Letter rt Signatures: Dispatcher [employer] Britni Arnold bd Cecily Fuentes, RN RN iw Adrian Lopez MD MD rt Elisa Coleman RN RN nj1 Corrections: (The following items were deleted from the chart) 12:48 11:35 rt bd
[2023-08-23] MEDS ORDERED: MORPHINE 2 MG/ML SYR IV PRN (11:50)
[2023-08-23] MEDS ORDERED: ONDANSETRON 4 MG/2 ML VIAL IV PRN (11:50)
[2023-08-23] MEDS ORDERED: ACETAMINOPHEN 500 MG TAB PO PRN (11:50)
--- NOTE | 2023-08-23 11:55 | P.HP ---
Certification for Inpatient Patient admitted to: Observation With expected LOS: <2 Midnights Patient will require the following post-hospital care: None Practitioner: I am a practitioner with admitting privileges, knowledge of patient current condition, hospital course, and medical plan of care. Services: Services provided to patient in accordance with Admission requirements found in Title 42 Section 412.3 of the Code of Federal Regulations Patient History Date of Service: 08/23/23 Reason for admission: Atrial fibrillation with rapid ventricular History of Present Illness: Patient is 78-year-old female came to the hospital with being diagnosed with atrial fibrillation 2 weeks ago. She placed Holter monitor and continue to have an episode of atrial fibrillation. She was given Eliquis and Holter monitor showed atrial fibs. Patient came to the hospital for further evaluation. Patient will be worked up with an echocardiogram and thyroid studies as well as cardiology consultation. Allergies brimonidine [From Alphagan P] Allergy (Verified 10/25/17 17:29) Itching timolol Allergy (Verified 10/25/17 17:29) Rash alfagan Allergy (Uncoded 10/25/17 16:40) Unknown temalol Allergy (Uncoded 10/25/17 16:40) Unknown Home Medications: Esomeprazole Mag Trihydrate [Nexium] 40 mg PO DAILY 10/18/17 Meloxicam 15 mg PO DAILY 10/18/17 Latanoprost Ophth [Xalatan 0.005%*] 1 gtt EACH EYE BEDTIME 11/23/17 Amlodipine Besylate [Norvasc] 5 mg PO BEDTIME 04/15/21 Aspirin [Aspirin EC 81 MG] 81 mg PO DAILY 04/15/21 Losartan Potassium [Cozaar] 100 mg PO DAILY 04/15/21 hydroCHLOROthiazide [Hydrodiuril*] 25 mg PO DAILY 04/15/21 predniSONE [Prednisone*] 5 mg PO DAILY 04/15/21 - Past Medical/Surgical History Diabetic: No -: Glaucoma -: Rheumatoid arthritis previously on immunosuppressive medication -: GERD -: Nephrolithiasis -: Bilateral partial knee replacement -: lithotripsy on 10/19/17 and stent placement on 10/24/17 -: cholecystectomy -: Cataracts surgery Psychosocial/ Personal History: The patient is a . She has 3 children. 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 moist/pink, EOMI, Sclerae nonicteric Neck: Supple, 2+ carotid pulse no bruit, No LAD, Without JVD or thyroid abnormality Respiratory: Clear to auscultation bilaterally, Normal air movement Cardiovascular: Irregular heart rate/rhythm Gastrointestinal: Normal bowel sounds, Soft and benign, Non-distended, No tenderness Musculoskeletal: No clubbing, No swelling, No tenderness Integumentary: No rashes Neurological: Normal gait, Normal speech, Normal strength at 5/5 x4 extr, Normal tone, Sensation intact, Cranial nerves 3-12 intact, Normal affect Lymphatics: No axilla or inguinal lymphadenopathy - Studies Laboratory Data (last 24 hrs) 08/23/23 08/23/23 10:56 10:49 WBC 11.70 H Hgb 14.1 Hct 40.8 Plt Count 305 Sodium 134 L Potassium 3.8 BUN 24 H Creatinine 1.27 H Glucose 119 H Magnesium 1.9 Total Bilirubin 0.6 AST 28 ALT 27 Alkaline Phosphatase 74 Assessment & Plan - Problems (Diagnosis) (1) Interstitial lung disease Onset Date: 10/26/17 Current Visit: No Status: Chronic (2) Atrial fibrillation with RVR Current Visit: Yes Status: Acute - Plan PLAN: 1. Echocardiogram 2. Sotalol 3. Eliquis 4. Cardiology consultation 5. Thyroid studies 6. EKG after third dose of sotalol and possible discharge Discharge Plan: Home Plan to discharge in: 24 Hours - Advance Directives Does patient have a Living Will: No Does patient have a Durable POA for Healthcare: No - Code Status/Comfort Care Code Status Assessed: Yes Code Status: Full Code Critical Care: No Time Spent Managing PTS Care (In Minutes): 45
[2023-08-23 14:02] VITALS: BMI 27.4
[2023-08-23] MEDS: NA CHLORIDE 0.9% 1,000 ML IV SCH (14:18)
--- NOTE | 2023-08-23 14:27 | EKG ---
Test Date: 2023-08-23 Test Time: 11:05:16 Post Tronic Machine Operator: JERAD MEASUREMENT RESULTS: Intervals: Rate: 76 HI: 178 QRSD: 100 QT: 382 QTc: 429 [place]: P: 24 HI: 178 QRS: 47 T: 20 INTERPRETIVE STATEMENTS: Normal sinus rhythm Low voltage QRS Borderline ECG Compared to ECG 04/15/2021 10:10:16 Ventricular premature complex(es) no longer present Myocardial infarct finding no longer present Electronically Signed On 08-23-23 14:25:50 [employer] ENG[employer] DES[employer] by Jerome Menon
[2023-08-23] MEDS: SOTALOL HCL 80 MG TAB PO SCH (20:43)
[2023-08-23] MEDS: APIXABAN 5 MG TABLET PO SCH (20:43)
[2023-08-24 06:28] LABS: Absolute Lymphocytes (CBC) 2.4 K/uL (0.7-4.9); Hematocrit 33.5 % (36.0-45.0); Lymphocytes % 25.9 % (15.3-44.8); MPV 7.2 fL (7.6-11.3); Platelets 239 thou/uL (152-406); RBC Red Blood Cell Count 3.68 M/uL (3.86-4.86)
[2023-08-24 06:33] LABS: Protime INR 1.36
[2023-08-24 07:14] LABS: Albumin 2.9 g/dL (3.4-5.0); Bilirubin Total 0.3 mg/dL (0.2-1.0); Potassium 3.8 mEq/L (3.5-5.1); Thyroid Stimulating Hormone 1.79 uIU/mL (0.358-3.740)
[2023-08-24 10:58] VITALS: O2SAT 97
[2023-08-24 12:34] VITALS: BP 114/53; TEMP 98.1
== END 2023-08-24 13:30 | disposition home or self-care (01) ==
LOC: ER 10:38 → ERHOLD 11:50 → 4TH 13:26
PROVIDERS: ADMIT Hospitalist; ATTEND Hospitalist
DX: I48.91 Unspecified atrial fibrillation (principal); J84.9 Interstitial pulmonary disease, unspecified; Z88.8 Allergy status to other drugs, medicaments and biological substances
CPT/HCPCS: 93005; 85025 ×2; 80048; 36415; 83735; 85610; 80061; 80076; 85730; 84443; 84484; 84439; 80053; J7030 ×2; 99283; G0378